=== PATIENT | male | born 1965 | race Two or more races ===

== ENCOUNTER 2019-02-14 08:24 | Emergency (ER) | payer MEDICAID ==
[~2019-02-14] VITALS: Ht 175.3 cm; Wt 90.7 kg
[2019-02-14 08:55] VITALS: BP 151/86
[2019-02-14] MEDS ORDERED: Ketorolac 30mg Inj IV ONE (09:00)
[2019-02-14] MEDS ORDERED: Morphine Sulfate 4mg/ml Inj (IV USE ONLY) IVP ONE (09:00)
[2019-02-14 09:06] LABS: APPEARANCE,URINE CLEAR; BILIRUBIN, URINE NEGATIVE (NEGATIVE); COLOR,URINE PALE YELLOW; GLUCOSE, URINE (UA) NEGATIVE (NEGATIVE); KETONES,URINE NEGATIVE (NEGATIVE); LEUKOCYTE ESTERASE ,URINE 1+ (NEGATIVE); NITRITE,URINE NEGATIVE (NEGATIVE); PH,URINE 5 (4.5-8.0); PROTEIN,URINE 2+ (NEGATIVE); UROBILINOGEN,URINE NORMAL MG/DL (0.0-1.0)
[2019-02-14 09:16] LABS: ANION GAP 14 mmol/L (5-15); BASOPHILS % (AUTO) 1.3 % (0.0-2.0); BLOOD UREA NITROGEN 31 mg/dL (7-18); CALCIUM 9.9 MG/DL (8.5-10.1); CARBON DIOXIDE 21 MMOL/L (21-32); CHLORIDE 103 MMOL/L (98-107); CREATININE 1.7 MG/DL (0.55-1.30); EOSINOPHILS % (AUTO) 1.1 % (0.0-3.0); HEMATOCRIT 40.3 % (42.0-52.0); HEMOGLOBIN 13.9 G/DL (14.2-18.0); LYMPHOCYTES % (AUTO) 29.1 % (20.0-45.0); MEAN CORPUSCULAR VOLUME 83 FL (80-99); MONOCYTES % (AUTO) 10.8 % (1.0-10.0); NEUTROPHILS % (AUTO) 57.8 % (45.0-75.0); PLATELET COUNT 186 K/UL (150-450); POTASSIUM 3.7 MMOL/L (3.5-5.1); RED BLOOD COUNT 4.86 M/UL (4.70-6.10); RED CELL DISTRIBUTION WIDTH 12.9 % (11.6-14.8); SODIUM 138 MMOL/L (136-145); WHITE BLOOD COUNT 6.5 K/UL (4.8-10.8)
[2019-02-14 09:21] LABS: ALANINE AMINOTRANSFERASE 36 U/L (12-78); ALBUMIN 4.1 G/DL (3.4-5.0); ALBUMIN/GLOBULIN RATIO 0.9 (1.0-2.7); ALKALINE PHOSPHATASE 68 U/L (46-116); ASPARTATE AMINO TRANSFERASE 20 U/L (15-37); BILIRUBIN,TOTAL 0.4 MG/DL (0.2-1.0)
--- NOTE | 2019-02-14 10:42 | Diagnostic Imaging Report ---
Indication: Abdominal pain Technique: Continuous helical transaxial imaging of the abdomen and pelvis was obtained from the lung bases to the pubic symphysis. No intravenous contrast was administered. Coronal 2-D reformats were also obtained. Automatic Exposure Control was utilized. Total Dose length Product (DLP): 1256.[address] Dose Index Volume (CTDIvol): 17.25,15.91 mGy Comparison: none Findings: There is minimal posterior basilar atelectasis with reticular densities and groundglass opacities. Tiny epiphrenic nodes are demonstrated nonspecific in nature. There is mild left hydroureteronephrosis secondary to a 2 mm left UVJ stone. Tiny nonobstructive stone demonstrated in the right kidney. The spleen is prominent in size. Appendix is normal. Bilateral inguinal hernias containing fat demonstrated. Bladder is unremarkable. There is no free fluid. Bowel gas pattern is nonobstructive. Vacuum phenomena and narrowing of the L3-4 and L4-5 intervertebral discs noted. IMPRESSION: 2 mm left UVJ calculus with minimal left hydroureteronephrosis. Tiny nonobstructive stone in the right kidney. Mild splenomegaly The CT scanner at [facility] is accredited by the [employer] and the scans are performed using dose optimization techniques as appropriate to a performed exam including Automatic Exposure control.
[2019-02-14] MEDS ORDERED: FLOMAX0.4 MG ORAL (11:00)
[2019-02-14] MEDS ORDERED: TYLENOL EXTRA500 MG ORAL (11:00)
[2019-02-14 11:09] VITALS: BP 132/78
--- NOTE | 2019-02-14 14:25 | Emergency Room Report ---
History of Present Illness General Chief Complaint: Abdominal Pain Source: Patient Present Illness HPI 53-year-old male presents ED for evaluation. Complaining of lower abdominal pain and hematuria. History of kidney stones. Started yesterday. Pain is throbbing, 8 out of 10, nonradiating. Denies nausea or vomiting. Denies fevers or chills. No other aggravating relieving factors. Denies any symptoms Allergies: Coded Allergies: No Known Allergies (Unverified , 02/14/19) Patient History Past Medical History: HTN, psych hx, other - kidney stones Past Surgical History: none Pertinent Family History: none Social History: Denies: smoking, alcohol use, drug use Immunizations: UTD Reviewed Nursing Documentation: PMH: Agreed; PSxH: Agreed Nursing Documentation-PMH Past Medical History: No History, Except For Hx Cardiac Problems: Yes - HIV Hx Hypertension: Yes History Of Psychiatric Problem: Yes - depression, anxiety Review of Systems All Other Systems: negative except mentioned in HPI Physical Exam Vital Signs Date Time Temp Pulse Resp B/P (MAP) Pulse Ox O2 Delivery O2 Flow Rate FiO2 02/14/19 08:28 97.5 75 18 151/86 (107) 96 Room Air Sp02 EP Interpretation: reviewed, normal General Appearance: no apparent distress, alert, GCS 15, non-toxic Head: normocephalic, atraumatic Eyes: bilateral eye normal inspection, bilateral eye PERRL ENT: hearing grossly normal, normal pharynx, no angioedema, normal voice Neck: full range of motion, supple/symm/no masses Respiratory: chest non-tender, lungs clear, normal breath sounds, speaking full sentences Cardiovascular #1: regular rate, rhythm, no edema Cardiovascular #2: 2+ carotid (R), 2+ carotid (L), 2+ radial (R), 2+ radial (L) , 2+ dorsalis pedis (R), 2+ dorsalis pedis (L) Gastrointestinal: normal bowel sounds, soft, non-distended, no guarding, no rebound, tenderness - suprapubic Rectal: deferred Genitourinary: normal inspection, no CVA tenderness Musculoskeletal: back normal, gait/station normal, normal range of motion, non- tender Neurologic: alert, oriented x3, responsive, motor strength/tone normal, sensory intact, speech normal Psychiatric: judgement/insight normal, memory normal, mood/affect normal, no suicidal/homicidal ideation Reflexes: 3+ bicep (R), 3+ bicep (L), 3+ tricep (R), 3+ tricep (L), 3+ knee (R) , 3+ knee (L) Skin: normal color, no rash, warm/dry, well hydrated Lymphatic: no adenopathy Medical Decision Making Diagnostic Impression: Primary Impression: Renal insufficiency Additional Impression: Kidney stone ER Course Hospital Course 53 yo M presents with pain and hematuria Differential diagnosis includes-appendicitis, cholecystitis, kidney stone, pyelonephritis Clinical course Patient placed on stretcher. After initial history and physical I ordered labs , IV fluids, pain medications and CT scan Labs - no leukocytosis, Cr 1.7, LFTs normal, UA - hematuria, no UTI CT scan shows 2mm stone in L UVJ with mild hydronephrosis Upon reassessment, patient states pain has improved. Discussed findings with patient. Safe for discharge or close outpatient follow-up. States he has a PMD and a urologist I feel this is a highly complex case requiring extensive working including EKG/ Rhythm strip, Xray/CT/US, Blood/urine lab work, repeat exams while in ED, and administration of strong opiates/narcotics for pain control, admission to hospital or close patient follow up. Diagnosis - renal insufficiency, kidney stone Stable and discharged to home with Rx tylenol, flomax. Followup with PMD. Return to ED if symptoms recur or worsen Labs Test 02/14/19 08:48 02/14/19 08:55 Urine Color Pale yellow Urine Appearance Clear Urine pH 5 (4.5-8.0) Urine Specific [place] 1.015 (1.005-1.035) Urine Protein 2+ (NEGATIVE) Urine Glucose (UA) Negative (NEGATIVE) Urine Ketones Negative (NEGATIVE) Urine Blood 5+ (NEGATIVE) Urine Nitrite Negative (NEGATIVE) Urine Bilirubin Negative (NEGATIVE) Urine Urobilinogen Normal MG/DL (0.0-1.0) Urine Leukocyte Esterase 1+ (NEGATIVE) Urine RBC 15-20 /HPF (0 - 0) Urine WBC 0-2 /HPF (0 - 0) Urine Squamous Epithelial Cells Occasional /LPF Urine Bacteria Occasional /HPF (NONE) White Blood Count 6.5 K/UL (4.8-10.8) Red Blood Count 4.86 M/UL (4.70-6.10) Hemoglobin 13.9 G/DL (14.2-18.0) Hematocrit 40.3 % (42.0-52.0) Mean Corpuscular Volume 83 FL (80-99) Mean Corpuscular Hemoglobin 28.7 PG (27.0-31.0) Mean Corpuscular Hemoglobin Concent 34.6 G/DL (32.0-36.0) Red Cell Distribution Width 12.9 % (11.6-14.8) Platelet Count 186 K/UL (150-450) Mean Platelet Volume 7.0 FL (6.5-10.1) Neutrophils (%) (Auto) 57.8 % (45.0-75.0) Lymphocytes (%) (Auto) 29.1 % (20.0-45.0) Monocytes (%) (Auto) 10.8 % (1.0-10.0) Eosinophils (%) (Auto) 1.1 % (0.0-3.0) Basophils (%) (Auto) 1.3 % (0.0-2.0) Sodium Level 138 MMOL/L (136-145) Potassium Level 3.7 MMOL/L (3.5-5.1) Chloride Level 103 MMOL/L (98-107) Carbon Dioxide Level 21 MMOL/L (21-32) Anion Gap 14 mmol/L (5-15) Blood Urea Nitrogen 31 mg/dL (7-18) Creatinine 1.7 MG/DL (0.55-1.30) Estimat Glomerular Filtration Rate 42.4 mL/min (>60) Glucose Level 106 MG/DL (74-106) Calcium Level 9.9 MG/DL (8.5-10.1) Total Bilirubin 0.4 MG/DL (0.2-1.0) Aspartate Amino Transf (AST/SGOT) 20 U/L (15-37) Alanine Aminotransferase (ALT/SGPT) 36 U/L (12-78) Alkaline Phosphatase 68 U/L (46-116) Total Protein 8.8 G/DL (6.4-8.2) Albumin 4.1 G/DL (3.4-5.0) Globulin 4.7 g/dL Albumin/Globulin Ratio 0.9 (1.0-2.7) Lipase 152 U/L (73-393) CT/MRI/US Diagnostic Results CT/MRI/US Diagnostic Results : Imaging Test Ordered: CT A/P Impression Findings: There is minimal posterior basilar atelectasis with reticular densities and groundglass opacities. Tiny epiphrenic nodes are demonstrated nonspecific in nature. There is mild left hydroureteronephrosis secondary to a 2 mm left UVJ stone. Tiny nonobstructive stone demonstrated in the right kidney. The spleen is prominent in size. Appendix is normal. Bilateral inguinal hernias containing fat demonstrated. Bladder is unremarkable. There is no free fluid. Bowel gas pattern is nonobstructive. Vacuum phenomena and narrowing of the L3-4 and L4-5 intervertebral discs noted. Last Vital Signs Date Time Temp Pulse Resp B/P (MAP) Pulse Ox O2 Delivery O2 Flow Rate FiO2 02/14/19 11:09 97.5 78 18 132/78 96 Room Air Status: improved Disposition: HOME, SELF-CARE Condition: Stable Scripts Tamsulosin HCl (Flomax) 0.4 Mg Cap.er.24h 0.4 MG ORAL DAILY, #10 CAP Prov: Dyllan Chase MD 02/14/19 Acetaminophen* (TYLENOL EXTRA STRENGTH*) 500 Mg Tablet 500 MG ORAL Q8H PRN for Prn Headache/Temp > 101, #30 TAB 0 Refills Prov: Dyllan Chase MD 02/14/19 Patient Instructions: Kidney Stones, [id number] Additional Instructions: followup with your PMD for urology referral Dyllan Chase MD February 14, 2019 14:25
== END 2019-02-14 11:09 | disposition home or self-care (01) ==
LOC: EMR 09:07
DX: N28.9 Disorder of kidney and ureter, unspecified (principal); N13.2 Hydronephrosis with renal and ureteral calculous obstruction; R16.1 Splenomegaly, not elsewhere classified; I10 Essential (primary) hypertension; Z87.442 Personal history of urinary calculi; F41.9 Anxiety disorder, unspecified; F32.9 Major depressive disorder, single episode, unspecified
CPT/HCPCS: 36415; 74176; 80053; 81003; 83690; 85025; 96361; 96374; 96375; 99284; J1885; J2405

== ENCOUNTER 2019-03-28 19:28 | Inpatient (IN) | payer MEDICAID ==
[~2019-03-28] VITALS: Ht 177.8 cm; Wt 90.7 kg
[~2019-03-28 19:28] MED LIST: FLOMAX0.4 MG ORAL; TYLENOL EXTRA500 MG ORAL
[2019-03-28 19:37] VITALS: BP 137/91
--- NOTE | 2019-03-28 19:37 | NUR ---
ED Nurse Note: Patient walked into ED c/o left lower abdominal pain that he states has been an ongoing issue for 1 day now. patient states that he does have a history of kidney stones in the past. patient was unable to give urine. reports of no emesis or diarrhea. patient is alert and oriented x4, ambulatory with a steady gait, VSS
--- NOTE | 2019-03-28 19:56 | Emergency Room Report ---
History of Present Illness General Chief Complaint: Abdominal Pain Source: Patient ([place]) Present Illness HPI 53-year-old male presents to the emergency department complaining of 9 out of 10 severity left flank pain with radiation down towards the left groin since noon today. Patient reports initially symptoms were intermittent however they have become more constant and his pain is not relieved with oral over-the- counter medication such as Motrin. Patient reports history of renal calculi. Patient denies hematuria, urinary frequency or urgency, dysuria or penile discharge. Patient reports urine is slightly concentrated. He denies fevers, chills, nausea, vomiting, constipation or diarrhea. Reports that his symptoms are very similar in nature to symptoms that he has experienced in the past when he had renal calculi. ([place]) Allergies: Coded Allergies: No Known Allergies (Unverified , 02/14/19) Patient History Past Medical History: see triage record, HIV, other - renal calculi Past Surgical History: none Pertinent Family History: none Reviewed Nursing Documentation: PMH: Agreed; PSxH: Agreed ([place]) Reviewed Nursing Documentation: PMH: Agreed; PSxH: Agreed (Thomas Blandon MD) Nursing Documentation-PMH Past Medical History: No History, Except For Hx Hypertension: Yes History Of Psychiatric Problem: Yes - DEPRESSION ([place]) Review of Systems All Other Systems: negative except mentioned in HPI ([place]) Physical Exam Vital Signs Date Time Temp Pulse Resp B/P (MAP) Pulse Ox O2 Delivery O2 Flow Rate FiO2 03/28/19 19:36 98.1 66 15 137/91 (106) 96 Room Air Sp02 EP Interpretation: reviewed, normal General Appearance: alert, GCS 15, non-toxic, moderate distress Head: normocephalic, atraumatic Eyes: bilateral eye normal inspection, bilateral eye PERRL ENT: hearing grossly normal, normal voice Neck: full range of motion Respiratory: lungs clear, normal breath sounds, speaking full sentences Cardiovascular #1: regular rate, rhythm Gastrointestinal: normal bowel sounds, non tender, soft, non-distended, no guarding Genitourinary: normal inspection, no CVA tenderness Musculoskeletal: back normal, gait/station normal, normal range of motion, non- tender Neurologic: alert, oriented x3, responsive, motor strength/tone normal, sensory intact, speech normal, grossly normal Psychiatric: judgement/insight normal ([place]) Medical Decision Making PA Attestation Dr. Blandon is my supervising Physician whom patient management has been discussed with. ([place]) Diagnostic Impression: Primary Impression: Renal insufficiency Additional Impressions: Hydronephrosis Left ureteral stone HIV disease ER Course 53-year-old male presents to the emergency department complaining of 9 out of 10 severity left flank pain with radiation down towards the left groin since noon today. Patient reports initially symptoms were intermittent however they have become more constant and his pain is not relieved with oral over-the- counter medication such as Motrin. Patient reports history of renal calculi. Patient denies hematuria, urinary frequency or urgency, dysuria or penile discharge. Patient reports urine is slightly concentrated. He denies fevers, chills, nausea, vomiting, constipation or diarrhea. Reports that his symptoms are very similar in nature to symptoms that he has experienced in the past when he had renal calculi. Ddx considered but are not limited to Diverticulitis, acute appy, diarrhea,UC, PUD, GE, pancreatitis, gallstone, kidney stone, pyelonephritis, UTI, obstruction. Vital signs: are WNL, pt. is afebrile H&PE are most consistent with possible left renal calculi ORDERS: -CBC, BMP: - UA: pending at time - CT abdomen and pelvis no contrast: ED INTERVENTIONS: -- 1000NS --4mg IV Morphine for pain Pt signed out to Dr. Blandon ([place]) ER Course Patient presented for increased left flank pain. Differential diagnosis include was not limited to renal stone, inguinal hernia, bowel obstruction among others. Because of complexity of patient's case laboratory testing and imaging studies were ordered. Patient was noted to have increased creatinine based compared to previous laboratory testing from 2 months ago. Patient was noted to have some improvement after medications.Laboratory testing showed normal white blood count. Ultrasound showed left-sided mild to moderate hydronephrosis patient previously had CT imaging which showed multiple stones.Patient will be hospitalized for further evaluation and pain control. Labs Test 03/28/19 19:57 White Blood Count 5.4 K/UL (4.8-10.8) Red Blood Count 4.77 M/UL (4.70-6.10) Hemoglobin 13.8 G/DL (14.2-18.0) Hematocrit 41.1 % (42.0-52.0) Mean Corpuscular Volume 86 FL (80-99) Mean Corpuscular Hemoglobin 29.0 PG (27.0-31.0) Mean Corpuscular Hemoglobin Concent 33.6 G/DL (32.0-36.0) Red Cell Distribution Width 12.4 % (11.6-14.8) Platelet Count 155 K/UL (150-450) Mean Platelet Volume 8.5 FL (6.5-10.1) Neutrophils (%) (Auto) 64.3 % (45.0-75.0) Lymphocytes (%) (Auto) 23.9 % (20.0-45.0) Monocytes (%) (Auto) 8.3 % (1.0-10.0) Eosinophils (%) (Auto) 2.3 % (0.0-3.0) Basophils (%) (Auto) 1.3 % (0.0-2.0) Sodium Level 137 MMOL/L (136-145) Potassium Level 3.5 MMOL/L (3.5-5.1) Chloride Level 103 MMOL/L (98-107) Carbon Dioxide Level 24 MMOL/L (21-32) Anion Gap 10 mmol/L (5-15) Blood Urea Nitrogen 26 mg/dL (7-18) Creatinine 2.1 MG/DL (0.55-1.30) Estimat Glomerular Filtration Rate 33.2 mL/min (>60) Glucose Level 98 MG/DL (74-106) Calcium Level 9.6 MG/DL (8.5-10.1) (Thomas Blandon MD) Last Vital Signs Date Time Temp Pulse Resp B/P (MAP) Pulse Ox O2 Delivery O2 Flow Rate FiO2 03/28/19 19:36 98.1 66 15 137/91 (106) 96 Room Air ([place]) Status: unchanged (Thomas Blandon MD) Disposition: ADMITTED INPATIENT Condition: Stable [place] Mar 28, 2019 19:56 Thomas Blandon MD Mar 28, 2019 20:39
[2019-03-28] MEDS ORDERED: Morphine Sulfate 4mg/ml Inj (IV USE ONLY) IVP ONE ×2 (20:00→21:15)
[2019-03-28] MEDS ORDERED: Ketorolac 30mg Inj IV ONE (20:00)
[2019-03-28 20:27] LABS: ANION GAP 10 mmol/L (5-15); BLOOD UREA NITROGEN 26 mg/dL (7-18); CALCIUM 9.6 MG/DL (8.5-10.1); CARBON DIOXIDE 24 MMOL/L (21-32); CHLORIDE 103 MMOL/L (98-107); CREATININE 2.1 MG/DL (0.55-1.30); POTASSIUM 3.5 MMOL/L (3.5-5.1); SODIUM 137 MMOL/L (136-145)
[2019-03-28 20:29] LABS: BASOPHILS % (AUTO) 1.3 % (0.0-2.0); EOSINOPHILS % (AUTO) 2.3 % (0.0-3.0); HEMATOCRIT 41.1 % (42.0-52.0); HEMOGLOBIN 13.8 G/DL (14.2-18.0); LYMPHOCYTES % (AUTO) 23.9 % (20.0-45.0); MEAN CORPUSCULAR VOLUME 86 FL (80-99); MONOCYTES % (AUTO) 8.3 % (1.0-10.0); NEUTROPHILS % (AUTO) 64.3 % (45.0-75.0); PLATELET COUNT 155 K/UL (150-450); RED BLOOD COUNT 4.77 M/UL (4.70-6.10); RED CELL DISTRIBUTION WIDTH 12.4 % (11.6-14.8); WHITE BLOOD COUNT 5.4 K/UL (4.8-10.8)
[2019-03-28] MEDS ORDERED: GABAPENTIN600 MG ORAL (21:15)
[2019-03-28] MEDS ORDERED: WELLBUTRIN SR100 MG ORAL (21:15)
[2019-03-28] MEDS ORDERED: WELLBUTRIN XL150 MG ORAL (21:15)
[2019-03-28] MEDS ORDERED: LISINOPRIL5 MG ORAL (21:15)
[2019-03-28] MEDS ORDERED: BUPROPION XL300 MG ORAL (21:15)
[2019-03-28] MEDS ORDERED: QUETIAPINE FUMA25 MG ORAL (21:15)
--- NOTE | 2019-03-28 21:30 | NUR ---
SPOKE WITH BETHEL REGARDING CLINICAL INFORMATION
[2019-03-28 21:35] LABS: APPEARANCE,URINE SLIGHTLY CLOUDY; BILIRUBIN, URINE NEGATIVE (NEGATIVE); COLOR,URINE PALE YELLOW; GLUCOSE, URINE (UA) NEGATIVE (NEGATIVE); KETONES,URINE NEGATIVE (NEGATIVE); LEUKOCYTE ESTERASE ,URINE NEGATIVE (NEGATIVE); NITRITE,URINE NEGATIVE (NEGATIVE); PH,URINE 5 (4.5-8.0); PROTEIN,URINE 2+ (NEGATIVE); UROBILINOGEN,URINE NORMAL MG/DL (0.0-1.0)
[2019-03-28 21:54] VITALS: BP 137/91
[2019-03-28] MEDS ORDERED: Tamsulosin 0.4mg cap ORAL ONE (22:15)
--- NOTE | 2019-03-28 22:21 | NUR ---
ED Nurse Note: patient in bed sleeping. complains of 4/10 pain
--- NOTE | 2019-03-28 22:50 | NUR ---
ED Nurse Note: Spoke with Daughter, Georgina, . informed patient's daughter regarding condition
[2019-03-29] VITALS (12 sets, daily range): BP systolic 114–147; BP diastolic 63–87
[2019-03-29] MEDS ORDERED: HYDROmorphone 1mg/ml Carpuject IVP ONE
--- NOTE | 2019-03-29 | NUR ---
ED Nurse Note: patietn complains of persistent pain, Dr. Sanchez notified and aware.
--- NOTE | 2019-03-29 00:19 | NUR ---
NURSE NOTES: Received ER telephone report from JULIO Parr. Awaiting patient's arrival.
--- NOTE | 2019-03-29 00:25 | NUR ---
TRANSFER TO FLOOR: Patient transferred to [facility] as ordered, per . Report given to Eli Yen
--- NOTE | 2019-03-29 00:30 | NUR ---
NURSE NOTES: Received patient to floor. Patient A&Ox4. On room air, no signs of distress or labored breathing. IV intact, patent, and saline locked. Belongings checked and validated. Bed in lowest position with call light in reach. Will implement MD orders and continue to monitor.
[2019-03-29] MEDS ORDERED: Acetaminophen 500mg (ES) tab ORAL PRN ×2 (01:45→03:00)
[2019-03-29] MEDS ORDERED: LORazepam Inj 2mg/ml 1ml IVP PRN (01:45)
[2019-03-29] MEDS ORDERED: Ketorolac 30mg Inj IV PRN ×3 (01:45→15:30)
[2019-03-29] MEDS ORDERED: Morphine Sulfate 2mg/ml Inj(IV/IM USE ONLY) IVP PRN (01:45)
[2019-03-29] MEDS ORDERED: ZOLOFT100 MG ORAL (02:04)
[2019-03-29] MEDS ORDERED: TRIUMEQ 600-501 EACH PO (02:04)
[2019-03-29] MEDS ORDERED: D5 1/2NS 1,000 ML IV SCH ×2 (02:45→08:30)
[2019-03-29] MEDS ORDERED: cefTRIAXone 2 GM in NS 55 ML IVPB ONE (03:00)
[2019-03-29] MEDS ORDERED: Morphine Sulfate 4mg/ml Inj (IV USE ONLY) IVP PRN (03:00)
--- NOTE | 2019-03-29 07:02 | NUR ---
CASE MANAGEMENT: INITIAL REVIEW 53 YO M PRESENTED TO ED FROM HOME CC: ABD PAIN PMHx: HIV. RENAL CALCULI. SI:KIDNEY STONE. RAHEL. T 98.1 HR 66 RR 15 B/P 137/91 SATS 96% ON RA BUN 26 CR 2.1 IS: NS BOLUS X1 TORADOL IV X1 MORPHINE IV X1 PATIENT ADMITTED TO MED/SURG 03/28/2019 @ 2155 DCP: PATIENT TO BE DISCHARGED TO HOME ONCE MEDICALLY CLEARED. 03/29/2019 SI:KIDNEY STONE. RAHEL. T 98.6 HR 69 RR 20 B/P 118/68 SATS 97% ON RA NO LABS TODAY IS: IVF @ 50 mL/HR WELLBUTRIN PO QD LISINOPRIL PO QD SEROQUEL PO QD PROTONIX PO QD FLOMAX PO QHS MED/SURG STATUS DCP: PATIENT TO BE DISCHARGED TO HOME ONCE MEDICALLY CLEARED. Addendum: 03/29/19 at 0715 by Keyla Thorpe CM INTERQUAL MET
--- NOTE | 2019-03-29 07:30 | NUR ---
HAND-OFF: Report given to JULIO Hankins.
[2019-03-29 07:44] LABS: BASOPHILS % (AUTO) 1.1 % (0.0-2.0); EOSINOPHILS % (AUTO) 0.9 % (0.0-3.0); HEMOGLOBIN 12.9 G/DL (14.2-18.0); LYMPHOCYTES % (AUTO) 20.8 % (20.0-45.0); MEAN CORPUSCULAR VOLUME 88 FL (80-99); MONOCYTES % (AUTO) 8.9 % (1.0-10.0); NEUTROPHILS % (AUTO) 68.3 % (45.0-75.0); PLATELET COUNT 128 K/UL (150-450); RED BLOOD COUNT 4.54 M/UL (4.70-6.10); WHITE BLOOD COUNT 4.8 K/UL (4.8-10.8)
[2019-03-29] MEDS ORDERED: Ketorolac 30mg Inj IV SCH (08:00)
--- NOTE | 2019-03-29 08:02 | NUR ---
NURSE NOTES: RN received pt in stable condition. No acute distress or SOB. Bed in low, locked position. Call light within reach. Daughter to bring in pt's home meds today. Pt diet changed to NPO. Will continue plan of care.
[2019-03-29 08:04] LABS: ALANINE AMINOTRANSFERASE 37 U/L (12-78); ALBUMIN 3.1 G/DL (3.4-5.0); ALBUMIN/GLOBULIN RATIO 0.8 (1.0-2.7); ALKALINE PHOSPHATASE 60 U/L (46-116); ANION GAP 11 mmol/L (5-15); ASPARTATE AMINO TRANSFERASE 23 U/L (15-37); BILIRUBIN,TOTAL 0.2 MG/DL (0.2-1.0); BLOOD UREA NITROGEN 24 mg/dL (7-18); CALCIUM 8.5 MG/DL (8.5-10.1); CARBON DIOXIDE 22 MMOL/L (21-32); CHLORIDE 110 MMOL/L (98-107); CHOLESTEROL 178 MG/DL (< 200); CREATININE 2.4 MG/DL (0.55-1.30); HDL CHOLESTEROL 25 MG/DL (40-60); POTASSIUM 3.5 MMOL/L (3.5-5.1); SODIUM 143 MMOL/L (136-145); TRIGLYCERIDES 323 MG/DL (30-150)
[2019-03-29] MEDS: BuPROPion SR 100mg tab ORAL SCH (08:10)
[2019-03-29] MEDS: Sertraline 50mg tab ORAL SCH (08:15)
[2019-03-29] MEDS ORDERED: Lisinopril 2.5mg tab ORAL SCH (09:00)
--- NOTE | 2019-03-29 09:00 | Consultation ---
DATE OF CONSULTATION: 03/29/2019 UROLOGY CONSULTATION CONSULTING PHYSICIAN: Gonzales Calix M.D. ATTENDING/REFERRING PHYSICIAN: Violeta Betts M.D. CHIEF COMPLAINT/HISTORY OF PRESENT ILLNESS: I was asked by Dr. Betts to evaluate this 53-year-old gentleman regarding a history of renal colic in the setting of previous nephrolithiasis. Briefly, the patient has a history of nephrolithiasis and has passed stones in the past. He presented to the ER in January with left-sided abdominal flank pain. At that time, CT scan that revealed a 2 mm stone in the left UVJ. He was improved with pain medication and discharged home. He now returns to the hospital with recurrent left flank pain approximately 6 weeks later. Given the above, I was asked to evaluate the patient. PAST MEDICAL HISTORY: 1. Nephrolithiasis. 2. HIV. 3. Hypertension. 4. Depression. PAST SURGICAL HISTORY: None. MEDICATIONS: Please see chart for current medications administration details. ALLERGIES: No known drug allergies. SOCIAL HISTORY: Unremarkable for tobacco, alcohol, or drug use. FAMILY HISTORY: Noncontributory. REVIEW OF SYSTEMS: A 14-system review of systems essentially unremarkable outside what is described above. PHYSICAL EXAMINATION: GENERAL: The patient is a middle-aged gentleman. Awake, alert, oriented x4. Pleasant, no obvious distress. HEENT: NC/AT. EOMI. Oropharynx clear. NECK: Supple. Full range of motion. CHEST: Within normal limits. ABDOMEN: Soft, nontender, nondistended. Somewhat obese. EXTREMITIES: Warm, well perfused. No cyanosis, clubbing, or edema. BACK: No CVA tenderness to percussion at this time. NEUROLOGIC: Nonfocal. LABORATORY DATA: White blood cell count 5.4, hematocrit 41.1, platelets 155. Sodium 137, potassium 3.5, chloride 103, bicarbonate 24, BUN 26, creatinine 2.1, glucose 98, calcium 9.6. Urinalysis specific gravity 1.020, pH 5.0. Dip test notable for 2+ protein, 5+ occult blood. Microanalysis with too numerous to count red blood cells per high-power field. DIAGNOSTIC IMAGING: CT scan of the abdomen and pelvis was done, but the read is still pending. ASSESSMENT AND PLAN: In summary, the patient is a 53-year-old gentleman with a history of nephrolithiasis who presents with a history of left-sided abdominal flank pain associated with the same. He was admitted to the hospital for the same. Physical exam is unremarkable for abdominal or CVA tenderness at this time. Laboratory data is notable for some renal insufficiency, which appears to be chronic. CT scan has been done, but read is pending. I discussed these findings today with the patient at bedside. His previous stone was very small. We will obtain a CT scan report and see whether or not this is the same stone or what else is present in his ureter. Based on the findings, we will institute plan of care for the patient. If the stone is extremely small or the same stone as before, conservative management may be appropriate. If there is any need for surgical intervention due to discomfort, we will consider that at that time. Thank you for allowing to participate in the care of this nice gentleman. Please do not hesitate to contact me for any questions that you may further have regarding his care. I will see him with you as needed. Gonzales Calix M.D. DR: ANNABELLE JOB#: [id number] CC:
[2019-03-29] MEDS: Morphine Sulfate 4mg/ml Inj (IV USE ONLY) IVP PRN ×3 (09:30→20:58)
--- NOTE | 2019-03-29 11:12 | Diagnostic Imaging Report ---
Indication: Abdominal pain Technique: Continuous helical transaxial imaging of the abdomen and pelvis was obtained from the lung bases to the pubic symphysis. No intravenous contrast was administered. Coronal 2-D reformats were also obtained. Automatic Exposure Control was utilized. Total Dose length Product (DLP): 1061.[address] Dose Index Volume (CTDIvol): 18.4 mGy Comparison: 02/14/2019 Findings: Linear densities at the lung bases likely atelectasis. There is a 4 mm stone at the left UVJ associated with mild to moderate left hydroureteronephrosis and perinephric/periureteral stranding. There is also a tiny punctate nonobstructive stone in the left kidney lower pole. The bladder is unremarkable. Note that the stone is on the bladder side of the UVJ. Appendix is normal. Bowel gas pattern is nonobstructive. Tiny nonobstructive stone also noted in the right kidney upper pole. Gallbladder is unremarkable. IMPRESSION: 4 mm stone on the bladder side of the left UVJ associated with moderate hydroureteronephrosis. Bilateral nonobstructive renal stones also noted. Other incidental findings as above. [facility] has communicated the preliminary results to the Emergency Department. Their findings are largely concordant with this report. The CT scanner at [facility] is accredited by the [employer] and the scans are performed using dose optimization techniques as appropriate to a performed exam including Automatic Exposure control.
--- NOTE | 2019-03-29 11:55 | Diagnostic Imaging Report ---
Indication:Elevated Bun and Creatinine. Technique: Grayscale and duplex Doppler imaging of the kidneys performed. Comparison: None Findings: There is left hydronephrosis demonstrated. Small echogenic foci noted within both kidneys suspicious for tiny nonobstructive stone. Right kidney is 11.5 cm in length. The left kidney is 12 cm in length. IVC is patent. The urinary bladder is unremarkable. IMPRESSION: Moderate left hydroureteronephrosis. Bilateral nonobstructive renal stones. Please refer to the CT report from the same day
--- NOTE | 2019-03-29 13:02 | Consultation ---
Consult Note Consult Note asked to eval for renal failure 53-year-old male presents to the emergency department complaining of 9 out of 10 severity left flank pain with radiation down towards the left groin since noon today. Patient reports initially symptoms were intermittent however they have become more constant and his pain is not relieved with oral over-the- counter medication such as Motrin. Patient reports history of renal calculi. Patient denies hematuria, urinary frequency or urgency, dysuria or penile discharge. Patient reports urine is slightly concentrated. He denies fevers, chills, nausea, vomiting, constipation or diarrhea. Reports that his symptoms are very similar in nature to symptoms that he has experienced in the past when he had renal calculi. No Known Allergies (Unverified , 02/14/19) Past Medical History: HIV, other - renal calculi Past Medical History: No History, Except For Hx Hypertension: Yes History Of Psychiatric Problem: Yes - DEPRESSION Patient also in drug rehab program- h/o PCP use interviewed examined data reviewed Assessment/Plan renal failure- Etiology? acute on chronic HTN Kidney stone, Left hydro HIV Depression Drug abuse Obese Uro intervention BP control avoid Nephrotoxics monitor renal parameters syop Toradol and Zestril due to elevated Cr CT IMPRESSION: 4 mm stone on the bladder side of the left UVJ associated with moderate hydroureteronephrosis. Bilateral nonobstructive renal stones also noted. River Smith MD Mar 29, 2019 13:02
[2019-03-29] MEDS: D5 1/2NS 1,000 ML IV SCH ×2 (13:30→20:54)
--- NOTE | 2019-03-29 14:00 | History & Physical ---
History and Physical History & Physicial seen and examined. Full Dictation completed Violeta Betts MD Mar 29, 2019 14:00
--- NOTE | 2019-03-29 14:03 | General Progress Note ---
Assessment/Plan Status: stable Assessment/Plan: Full Dictation in progress 1- Acute Renal Colic 2- ARF 3- Obstructive uropathy- Lt 4- HIV 5- Addiction , on rehab Plan; ID,Nephro and Urology consulted Subjective Allergies: Coded Allergies: No Known Allergies (Unverified , 02/14/19) Objective Last 24 Hour Vital Signs Date Time Temp Pulse Resp B/P (MAP) Pulse Ox O2 Delivery O2 Flow Rate FiO2 03/29/19 12:00 98.0 69 20 122/72 (89) 97 03/29/19 10:00 98.6 03/29/19 09:00 Room Air 03/29/19 08:48 98.6 03/29/19 08:12 118/68 03/29/19 08:00 98.0 67 20 127/74 (91) 97 03/29/19 04:00 98.6 69 20 118/68 (85) 97 03/29/19 01:35 Room Air 03/29/19 00:30 97.7 70 20 147/70 (95) 97 03/29/19 00:25 98.1 66 15 124/79 96 Room Air 03/29/19 00:13 98.1 66 15 124/79 96 Room Air 03/28/19 21:54 98.1 72 15 137/91 96 Room Air 03/28/19 21:44 98.1 03/28/19 21:44 98.1 03/28/19 20:34 98.1 03/28/19 19:37 98.1 65 15 137/91 96 Room Air 03/28/19 19:37 66 15 Room Air 03/28/19 19:36 98.1 66 15 137/91 (106) 96 Room Air Intake and Output 03/28/19 03/29/19 19:00 07:00 Intake Total 1000 ml Balance 1000 ml Intake IV Total 1000 ml # Voids 4 Laboratory Tests 03/28/19 19:57: White Blood Count 5.4, Red Blood Count 4.77, Hemoglobin 13.8L, Hematocrit 41.1L , Mean Corpuscular Volume 86, Mean Corpuscular Hemoglobin 29.0, Mean Corpuscular Hemoglobin Concent 33.6, Red Cell Distribution Width 12.4, Platelet Count 155, Mean Platelet Volume 8.5, Neutrophils (%) (Auto) 64.3, Lymphocytes (% ) (Auto) 23.9, Monocytes (%) (Auto) 8.3, Eosinophils (%) (Auto) 2.3, Basophils ( %) (Auto) 1.3, Sodium Level 137, Potassium Level 3.5, Chloride Level 103, Carbon Dioxide Level 24, Anion Gap 10, Blood Urea Nitrogen 26H, Creatinine 2.1H , Estimat Glomerular Filtration Rate 33.2, Glucose Level 98, Calcium Level 9.6 03/28/19 21:25: Urine Color Pale yellow, Urine Appearance Slightly cloudy, Urine pH 5, Urine Specific [place] 1.020, Urine Protein 2+H, Urine Glucose (UA) Negative, Urine Ketones Negative, Urine Blood 5+H, Urine Nitrite Negative, Urine Bilirubin Negative, Urine Urobilinogen Normal, Urine Leukocyte Esterase Negative, Urine RBC TntcH, Urine WBC 0-2, Urine Squamous Epithelial Cells None, Urine Amorphous Sediment ModerateH, Urine Bacteria Few 03/29/19 06:16: White Blood Count 4.8, Red Blood Count 4.54L, Hemoglobin 12.9L, Hematocrit 40.0L , Mean Corpuscular Volume 88, Mean Corpuscular Hemoglobin 28.4, Mean Corpuscular Hemoglobin Concent 32.2, Red Cell Distribution Width 13.0, Platelet Count 128L, Mean Platelet Volume 9.0, Neutrophils (%) (Auto) 68.3, Lymphocytes ( %) (Auto) 20.8, Monocytes (%) (Auto) 8.9, Eosinophils (%) (Auto) 0.9, Basophils (%) (Auto) 1.1, Sodium Level 143, Potassium Level 3.5, Chloride Level 110H, Carbon Dioxide Level 22, Anion Gap 11, Blood Urea Nitrogen 24H, Creatinine 2.4H , Estimat Glomerular Filtration Rate 28.5, Glucose Level 116H, Calcium Level 8.5 , Hemoglobin A1c 5.7, Total Bilirubin 0.2, Aspartate Amino Transf (AST/SGOT) 23 , Alanine Aminotransferase (ALT/SGPT) 37, Alkaline Phosphatase 60, Total Protein 7.0, Albumin 3.1L, Globulin 3.9, Albumin/Globulin Ratio 0.8L, Triglycerides Level 323H, Cholesterol Level 178, LDL Cholesterol 100, HDL Cholesterol 25L, Cholesterol/HDL Ratio 7.1H, Thyroid Stimulating Hormone (TSH) 6.239H Height (Feet): 5 Height (Inches): 10.00 Weight (Pounds): 200 Violeta Betts MD Mar 29, 2019 14:03
--- NOTE | 2019-03-29 14:30 | Infectious Diseases Prog Note ---
Assessment/Plan Problems: (1) HIV disease Assessment & Plan: continue trimeque , will obtain viral load and CD4 counts , follow up with HIV provider (2) Left ureteral stone Assessment & Plan: with mod hydronephrosis , start ceftriaxone empirically to cover for possible pyelonephritis , send urine culture, urology is following (3) Renal insufficiency Assessment & Plan: chronic, continue hydration, may need stone removal to prevent worsening hydronephrosis , and to improve renal function Subjective Allergies: Coded Allergies: No Known Allergies (Unverified , 02/14/19) Objective Vital Signs Last 24 Hour Vital Signs Date Time Temp Pulse Resp B/P (MAP) Pulse Ox O2 Delivery O2 Flow Rate FiO2 03/29/19 12:00 98.0 69 20 122/72 (89) 97 03/29/19 10:00 98.6 03/29/19 09:00 Room Air 03/29/19 08:48 98.6 03/29/19 08:12 118/68 03/29/19 08:00 98.0 67 20 127/74 (91) 97 03/29/19 04:00 98.6 69 20 118/68 (85) 97 03/29/19 01:35 Room Air 03/29/19 00:30 97.7 70 20 147/70 (95) 97 03/29/19 00:25 98.1 66 15 124/79 96 Room Air 03/29/19 00:13 98.1 66 15 124/79 96 Room Air 03/28/19 21:54 98.1 72 15 137/91 96 Room Air 03/28/19 21:44 98.1 03/28/19 21:44 98.1 03/28/19 20:34 98.1 03/28/19 19:37 98.1 65 15 137/91 96 Room Air 03/28/19 19:37 66 15 Room Air 03/28/19 19:36 98.1 66 15 137/91 (106) 96 Room Air Height (Feet): 5 Height (Inches): 10.00 Weight (Pounds): 200 Laboratory Tests Test 03/28/19 19:57 03/28/19 21:25 03/29/19 06:16 White Blood Count 5.4 K/UL (4.8-10.8) 4.8 K/UL (4.8-10.8) Red Blood Count 4.77 M/UL (4.70-6.10) 4.54 M/UL (4.70-6.10) L Hemoglobin 13.8 G/DL (14.2-18.0) L 12.9 G/DL (14.2-18.0) L Hematocrit 41.1 % (42.0-52.0) L 40.0 % (42.0-52.0) L Mean Corpuscular Volume 86 FL (80-99) 88 FL (80-99) Mean Corpuscular Hemoglobin 29.0 PG (27.0-31.0) 28.4 PG (27.0-31.0) Mean Corpuscular Hemoglobin Concent 33.6 G/DL (32.0-36.0) 32.2 G/DL (32.0-36.0) Red Cell Distribution Width 12.4 % (11.6-14.8) 13.0 % (11.6-14.8) Platelet Count 155 K/UL (150-450) 128 K/UL (150-450) L Mean Platelet Volume 8.5 FL (6.5-10.1) 9.0 FL (6.5-10.1) Neutrophils (%) (Auto) 64.3 % (45.0-75.0) 68.3 % (45.0-75.0) Lymphocytes (%) (Auto) 23.9 % (20.0-45.0) 20.8 % (20.0-45.0) Monocytes (%) (Auto) 8.3 % (1.0-10.0) 8.9 % (1.0-10.0) Eosinophils (%) (Auto) 2.3 % (0.0-3.0) 0.9 % (0.0-3.0) Basophils (%) (Auto) 1.3 % (0.0-2.0) 1.1 % (0.0-2.0) Sodium Level 137 MMOL/L (136-145) 143 MMOL/L (136-145) Potassium Level 3.5 MMOL/L (3.5-5.1) 3.5 MMOL/L (3.5-5.1) Chloride Level 103 MMOL/L (98-107) 110 MMOL/L (98-107) H Carbon Dioxide Level 24 MMOL/L (21-32) 22 MMOL/L (21-32) Anion Gap 10 mmol/L (5-15) 11 mmol/L (5-15) Blood Urea Nitrogen 26 mg/dL (7-18) H 24 mg/dL (7-18) H Creatinine 2.1 MG/DL (0.55-1.30) H 2.4 MG/DL (0.55-1.30) H Estimat Glomerular Filtration Rate 33.2 mL/min (>60) 28.5 mL/min (>60) Glucose Level 98 MG/DL (74-106) 116 MG/DL (74-106) H Calcium Level 9.6 MG/DL (8.5-10.1) 8.5 MG/DL (8.5-10.1) Urine Color Pale yellow Urine Appearance Slightly cloudy Urine pH 5 (4.5-8.0) Urine Specific [place] 1.020 (1.005-1.035) Urine Protein 2+ (NEGATIVE) H Urine Glucose (UA) Negative (NEGATIVE) Urine Ketones Negative (NEGATIVE) Urine Blood 5+ (NEGATIVE) H Urine Nitrite Negative (NEGATIVE) Urine Bilirubin Negative (NEGATIVE) Urine Urobilinogen Normal MG/DL (0.0-1.0) Urine Leukocyte Esterase Negative (NEGATIVE) Urine RBC Tntc /HPF (0 - 0) H Urine WBC 0-2 /HPF (0 - 0) Urine Squamous Epithelial Cells None /LPF (NONE/OCC) Urine Amorphous Sediment Moderate /LPF (NONE) H Urine Bacteria Few /HPF (NONE) Hemoglobin A1c 5.7 % (4.3-6.0) Total Bilirubin 0.2 MG/DL (0.2-1.0) Aspartate Amino Transf (AST/SGOT) 23 U/L (15-37) Alanine Aminotransferase (ALT/SGPT) 37 U/L (12-78) Alkaline Phosphatase 60 U/L (46-116) Total Protein 7.0 G/DL (6.4-8.2) Albumin 3.1 G/DL (3.4-5.0) L Globulin 3.9 g/dL Albumin/Globulin Ratio 0.8 (1.0-2.7) L Triglycerides Level 323 MG/DL (30-150) H Cholesterol Level 178 MG/DL (< 200) LDL Cholesterol 100 mg/dL (<100) HDL Cholesterol 25 MG/DL (40-60) L Cholesterol/HDL Ratio 7.1 (3.3-4.4) H Thyroid Stimulating Hormone (TSH) 6.239 uiU/mL (0.358-3.740) Current Medications Medications (Trade) Dose Ordered Sig/Diane Route PRN Reason Start Time Stop Time Status Last Admin Dose Admin Acetaminophen (Tylenol) 500 mg Q4H PRN ORAL Mild Pain/Temp > 100.5 03/29/19 03:00 04/28/19 01:44 Amlodipine Besylate (Norvasc) 5 mg BID ORAL 03/29/19 18:00 04/28/19 17:59 Bupropion HCl (Wellbutrin SR) 100 mg DAILY ORAL 03/29/19 09:00 04/28/19 08:59 03/29/19 08:10 Ceftriaxone Sodium 1 gm/ Dextrose 55 ml @ 110 mls/hr Q24H IVPB 03/29/19 15:00 04/05/19 14:59 Dextrose/Sodium Chloride 1,000 ml @ 150 mls/hr Q6H40M IV 03/29/19 13:30 04/28/19 13:29 Gabapentin (Neurontin) 600 mg TWICE A DAY ONCE ORAL 03/29/19 18:00 03/29/19 18:01 Lorazepam (Ativan 2mg/ml 1ml) 1 mg Q4H PRN IVP agitation 03/29/19 01:45 04/05/19 01:44 Morphine Sulfate (Morphine Sulfate) 3 mg Q4H PRN IVP Moderate Pain (Pain Scale 4-6) 03/29/19 03:30 04/05/19 02:59 03/29/19 14:21 Non-Formulary Medication (Non-Formulary Med) 1 ea DAILY ORAL 03/29/19 09:00 04/28/19 08:59 UNV Ondansetron HCl (Zofran) 4 mg Q4H PRN IVP Nausea & Vomiting 03/29/19 01:45 04/28/19 01:44 Pantoprazole (Protonix) 40 mg DAILY ORAL 03/29/19 09:00 04/28/19 08:59 03/29/19 08:10 Quetiapine Fumarate (SEROquel) 50 mg DAILY ORAL 03/29/19 09:00 8/4/19 08:59 Sertraline HCl (Zoloft) 150 mg DAILY ORAL 03/29/19 09:00 04/28/19 08:59 03/29/19 08:15 Tamsulosin HCl (Flomax) 0.4 mg QHS ORAL 03/29/19 21:00 04/28/19 20:59 Irwin Waever M.D. Mar 29, 2019 14:30
[2019-03-29] MEDS: cefTRIAXone 1 GM in D5W 55 ML IVPB SCH ×2 (15:00→15:15)
[2019-03-29] MEDS ORDERED: Iothalamate Meglumine 60% 30ML INJ ONE (15:00)
[2019-03-29] MEDS ORDERED: Midazolam 2mg/2ml Inj ONE (15:06)
[2019-03-29] MEDS ORDERED: Alfentanil 2ml Inj ONE (15:06)
[2019-03-29] MEDS ORDERED: LR 1000ml 1,000 ML IVLG SCH (15:16)
[2019-03-29] MEDS ORDERED: Lidocaine 1% MPF 10mg/ml 5ml ONE (15:18)
[2019-03-29] MEDS ORDERED: Dexamethasone 4mg/ml vial ONE (15:18)
[2019-03-29] MEDS ORDERED: Propofol 200mg/20ml IV ONE (15:18)
[2019-03-29] MEDS ORDERED: Sodium Chloride 10ml vial INJ ONE (15:18)
--- NOTE | 2019-03-29 15:20 | Pre-Procedure Note/Attestation ---
Pre-Procedure Note/Attestation Complete Prior to Procedure Planned Procedure: left Procedure Narrative: ureteroscopy, laser lithotripsy, possible JJ stent placement, cystoscopy and fluoroscopy Indications for Procedure Pre-Operative Diagnosis: Left ureteral stone/ hydronephrosis/ colic Attestation I attest that I discussed the nature of the procedure; its benefits; risks and complications; and alternatives (and the risks and benefits of such alternatives ), prior to the procedure, with the patient (or the patient's legal charter representative). I attest that, if there was a reasonable possibility of needing a blood transfusion, the patient (or the patient's legal charter representative) was given the [place] Department [employer] standardized written summary, pursuant to the Dariusz Dupo Blood Safety Act ([place] Health and Safety Code # 1645, as amended). I attest that I re-evaluated the patient just prior to the surgery and that there has been no change in the patient's H&P, except as documented below: Gonzales Calix M.D. Mar 29, 2019 15:20
--- NOTE | 2019-03-29 15:20 | NUR ---
NURSE NOTES: Pt left for procedure at time of abx administration; scheduled abx not given at 1500.
--- NOTE | 2019-03-29 15:27 | Anethesia Preoperative Eval ---
Anesthesia Pre-op PMH/ROS General Date of Evaluation: Mar 29, 2019 Time of Evaluation: 15:24 Anesthesiologist: Niranjan ASA Score: ASA 3 - Emergency Mallampati Score Class I : Soft palate, uvula, fauces, pillars visible Class II: Soft palate, uvula, fauces visible Class III: Soft palate, base of uvula visible Class IV: Only hard plate visible Mallampati Classification: Class II Surgeon: Fifi Diagnosis: Urinary Obstrution Surgical Procedure: Cystoscopy, Stent Placement Anesthesia History: none Family History: no anesthesia problems Allergies: Coded Allergies: No Known Allergies (Unverified , 02/14/19) Medications: see eMAR Patient NPO?: Yes NPO Date: Mar 28, 2019 NPO Time: 1200 Past Medical History Cardiovascular: Reports: HTN Gastrointestinal/Genitourinary: Reports: other - AKF Neurologic/Psychiatric: Reports: depression/anxiety, other - Peripheral Neuropathy Hematology/Immune: Reports: other - HIV, Syphilis Anesthesia Pre-op Phys. Exam Physician Exam Last Vital Signs Date Time Temp Pulse Resp B/P (MAP) Pulse Ox O2 Delivery O2 Flow Rate FiO2 03/29/19 12:00 98.0 69 20 122/72 (89) 97 03/29/19 09:00 Room Air Constitutional: NAD Neurologic: CN 2-12 intact Cardiovascular: RRR Respiratory: CTA Gastrointestinal: S/NT/ND Airway Exam Mallampati Score: Class II MO: full ROM: limited Teeth: missing, intact Anesthesia Pre-op A/P Labs Hematology Test 03/28/19 19:57 03/29/19 06:16 White Blood Count 5.4 K/UL (4.8-10.8) 4.8 K/UL (4.8-10.8) Red Blood Count 4.77 M/UL (4.70-6.10) 4.54 M/UL (4.70-6.10) L Hemoglobin 13.8 G/DL (14.2-18.0) L 12.9 G/DL (14.2-18.0) L Hematocrit 41.1 % (42.0-52.0) L 40.0 % (42.0-52.0) L Mean Corpuscular Volume 86 FL (80-99) 88 FL (80-99) Mean Corpuscular Hemoglobin 29.0 PG (27.0-31.0) 28.4 PG (27.0-31.0) Mean Corpuscular Hemoglobin Concent 33.6 G/DL (32.0-36.0) 32.2 G/DL (32.0-36.0) Red Cell Distribution Width 12.4 % (11.6-14.8) 13.0 % (11.6-14.8) Platelet Count 155 K/UL (150-450) 128 K/UL (150-450) L Mean Platelet Volume 8.5 FL (6.5-10.1) 9.0 FL (6.5-10.1) Neutrophils (%) (Auto) 64.3 % (45.0-75.0) 68.3 % (45.0-75.0) Lymphocytes (%) (Auto) 23.9 % (20.0-45.0) 20.8 % (20.0-45.0) Monocytes (%) (Auto) 8.3 % (1.0-10.0) 8.9 % (1.0-10.0) Eosinophils (%) (Auto) 2.3 % (0.0-3.0) 0.9 % (0.0-3.0) Basophils (%) (Auto) 1.3 % (0.0-2.0) 1.1 % (0.0-2.0) Chemistry Test 03/28/19 19:57 03/29/19 06:16 Sodium Level 137 MMOL/L (136-145) 143 MMOL/L (136-145) Potassium Level 3.5 MMOL/L (3.5-5.1) 3.5 MMOL/L (3.5-5.1) Chloride Level 103 MMOL/L (98-107) 110 MMOL/L (98-107) H Carbon Dioxide Level 24 MMOL/L (21-32) 22 MMOL/L (21-32) Anion Gap 10 mmol/L (5-15) 11 mmol/L (5-15) Blood Urea Nitrogen 26 mg/dL (7-18) H 24 mg/dL (7-18) H Creatinine 2.1 MG/DL (0.55-1.30) H 2.4 MG/DL (0.55-1.30) H Estimat Glomerular Filtration Rate 33.2 mL/min (>60) 28.5 mL/min (>60) Glucose Level 98 MG/DL (74-106) 116 MG/DL (74-106) H Calcium Level 9.6 MG/DL (8.5-10.1) 8.5 MG/DL (8.5-10.1) Hemoglobin A1c 5.7 % (4.3-6.0) Total Bilirubin 0.2 MG/DL (0.2-1.0) Aspartate Amino Transf (AST/SGOT) 23 U/L (15-37) Alanine Aminotransferase (ALT/SGPT) 37 U/L (12-78) Alkaline Phosphatase 60 U/L (46-116) Total Protein 7.0 G/DL (6.4-8.2) Albumin 3.1 G/DL (3.4-5.0) L Globulin 3.9 g/dL Albumin/Globulin Ratio 0.8 (1.0-2.7) L Triglycerides Level 323 MG/DL (30-150) H Cholesterol Level 178 MG/DL (< 200) LDL Cholesterol 100 mg/dL (<100) HDL Cholesterol 25 MG/DL (40-60) L Cholesterol/HDL Ratio 7.1 (3.3-4.4) H Thyroid Stimulating Hormone (TSH) 6.239 uiU/mL (0.358-3.740) Risk Assessment & Plan Assessment: ASA 3E Plan: GA, SED Status Change Before Surgery: No Pre-Antibiotics Dru Gram Ancef IV Given Within 1 Hr of Incision: Yes Time Given: 15:46 Kevin Ureña MD Mar 29, 2019 15:27
--- NOTE | 2019-03-29 15:28 | Immediate Post-Op Evaluation ---
Immediate Post-Op Evalulation Immediate Post-Op Evalulation Procedure: Cystoscopy, Stent Placement Date of Evaluation: Mar 29, 2019 Time of Evaluation: 15:47 IV Fluids: 500 LR Blood Products: 0 Estimated Blood Loss: 10 Urinary Output: 0 Blood Pressure Systolic: 121 Blood Pressure Diastolic: 68 Pulse Rate: 83 Respiratory Rate: 16 O2 Sat by Pulse Oximetry: 100 Temperature (Fahrenheit): 97.2 Pain Score (1-10): 2 Nausea: No Vomiting: No Complications 0 Patient Status: awake, reacts, patent, none Hydration Status: adequate Dru Gram Ancef IV Given Within 1 Hr of Incision: Yes Time Given: 15:46 Kevin Ureña MD Mar 29, 2019 15:28
--- NOTE | 2019-03-29 15:29 | 48 Hour Post Anesthesia Eval ---
Post Anesthesia Evaluation Procedure: Cystoscopy, Stent Placement Date of Evaluation: Mar 29, 2019 Time of Evaluation: 17:51 Blood Pressure Systolic: 133 0: 81 Pulse Rate: 74 Respiratory Rate: 16 Temperature (Fahrenheit): 97.2 O2 Sat by Pulse Oximetry: 100 Airway: patent Nausea: No Vomiting: No Pain Intensity: 2 Hydration Status: adequate Cardiopulmonary Status: Stable Mental Status/LOC: patient returned to baseline Follow-up Care/Observations: 0 Post-Anesthesia Complications: 0 Follow-up care needed: N/A Kevin Ureña MD Mar 29, 2019 15:29
[2019-03-29] MEDS ORDERED: fentaNYL 100 mcg/2 mL IV PRN (15:30)
[2019-03-29] MEDS ORDERED: oxyCODONE HCL/Acetaminophen 5/325mg ORAL PRN (15:30)
[2019-03-29] MEDS ORDERED: LR 1000ml ONE (15:30)
[2019-03-29] MEDS ORDERED: HYDROcodone/Acetamin 5/325 tab ORAL PRN (15:30)
[2019-03-29] MEDS ORDERED: Labetalol 5mg/ml 20ml vial IV PRN (15:30)
[2019-03-29] MEDS ORDERED: HYDROcodone/Acetamin 7.5/325 tab ORAL PRN (15:30)
[2019-03-29] MEDS ORDERED: Midazolam 2mg/2ml Inj IVP PRN (15:30)
[2019-03-29] MEDS ORDERED: Acetaminophen (Non formulary) 100 ML IV ONE (15:30)
[2019-03-29] MEDS ORDERED: DiphenhydrAMINE 50mg/ml Inj IVP PRN (15:30)
[2019-03-29] MEDS ORDERED: Sterile Water Irrig 1000ml IRRIG ONE (15:30)
[2019-03-29] MEDS ORDERED: LORazepam Inj 2mg/ml 1ml IV PRN (15:30)
[2019-03-29] MEDS ORDERED: NS Irrig 1000ml ONE (15:30)
[2019-03-29] MEDS ORDERED: Hydromorphone 0.5mg/0.5ml inj IVP PRN (15:30)
[2019-03-29] MEDS ORDERED: Atropine Sulfate 0.4mg/ml inj IVP PRN (15:30)
--- NOTE | 2019-03-29 16:14 | Operative Note - PDOC ---
Operative Note Operative Note Date of Operation/Procedure: Mar 29, 2019 Pre-op Diagnosis: Left ureteral stone/ hydronephrosis/ colic Procedure: Left ureteroscopy, laser lithotripsy, fluoroscopy Post-op Diagnosis: same as pre-op Operative Findings: consistent w/pre-op dx studies Surgeon: Fifi Anesthesia: general Specimen: none Complications: none Condition: stable Estimated Blood Loss: none Drains: none Implant(s) used?: No Indications for Procedure Left ureteral stone/ hydronephrosis Gonzales Calix M.D. Mar 29, 2019 16:14
--- NOTE | 2019-03-29 16:15 | History and Physical Report ---
DATE OF ADMISSION: 03/28/2019 SOURCE OF INFORMATION: The patient and EMR. HISTORY OF PRESENT ILLNESS: The patient is a 53-year-old male with a history of HIV and kidney stone, who presented with severe left-sided flank pain with radiation to the left inguinal area. At the time of evaluation, the patient denies any chest pain or shortness of breath. No nausea. No vomitus. No diarrhea or constipation. Complaining of persistent pain in the left flank. Initial evaluation in the emergency room shows stable vital signs. Initial imaging shows 4 mm stone on the left UVJ, positive for the hydronephrosis. REVIEW OF SYSTEMS: All 12 elements of review of systems reviewed, pertinent positive and negative as above. PAST SURGICAL HISTORY: Positive for the hernia repair. SOCIAL HISTORY: The patient has two children. Positive for history of addiction to benzodiazepine. Denies any IV drug abuse. ALLERGIES: NKDA. PAST MEDICAL HISTORY: Bilateral renal stones, HIV, addiction to benzodiazepine, currently in the rehabilitation. MEDICATIONS: Current hospital medications including, but not limited to, Flomax, Seroquel, ceftriaxone, and amlodipine. PHYSICAL EXAMINATION: VITAL SIGNS: Blood pressure 140/80, temperature 98.2, pulse oximetry 98% on room air, respiratory rate 18. HEAD AND NECK: Atraumatic and normocephalic. CHEST: Clear to auscultation. HEART: S1, S2. Regular rate and rhythm. ABDOMEN: Soft. No organomegaly. Positive for the bilateral costovertebral angle tenderness. MUSCULOSKELETAL: No gross lateralized motor deficit. NEUROLOGIC: Awake, alert, and oriented x3. LABORATORY DATA: Dated March 28, WBC 5.4, hemoglobin 13.8. Sodium 137, potassium 3.5, BUN 26, and creatinine 2.1. A1c of 5.7. Triglycerides of 323. TSH of 6.2. ASSESSMENT: 1. Acute renal colic. 2. Obstructive left-sided hydronephrosis and partial obstruction of the UVJ. 3. HIV. 4. Bilateral renal stones. 5. Chronic renal failure. 6. Hypercholesterolemia. 7. Hypothyroidism. 8. GI and DVT prophylaxis. PLAN OF CARE: We will pursue with the pain management, the renal ultrasound. We will do the anemia workup. We will start the patient on the cholesterol medication and thyroid medication. COMMENTS: Time of this dictation does not reflect the actual time of encounter. Violeta Betts M.D. DR: KODAK JOB#: [id number] CC: ALPESH
--- NOTE | 2019-03-29 16:45 | Consultation ---
DATE OF CONSULTATION: 03/29/2019 INFECTIOUS DISEASE CONSULTATION CONSULTING PHYSICIAN: Irwin Weaver M.D. REQUESTING PHYSICIAN: Violeta Betts M.D. REASON FOR CONSULTATION: Left ureter obstruction with stone, possible pyelonephritis, recommendation for antibiotics treatment and HIV care. HISTORY OF PRESENT ILLNESS: The patient is a 53-year-old male with past medical history of HIV and renal stone, presented to [facility] with worsening left costophrenic angle pain mainly in the left flank area, radiation down to the left scrotum and rectal area, started yesterday morning. The patient had similar symptom before when he had his stone diagnosed first time on his last admission. Denied any hematuria, but had burning sensation with urination. Attempted to take Tylenol with not much relief, so he presented to the emergency room with this complaint. In the ER, the patient had a CT scan of the abdomen and pelvis with stone protocol and revealed 4 mm stone at the UVJ junction. Urinalysis showed mild infection, so infectious disease consultation was requested for possible antibiotics treatment and for his HIV disease care. REVIEW OF SYSTEMS: A 14-point of system reviewed were all negative apart from the one I mentioned above in my H and P. PAST MEDICAL HISTORY: Significant for HIV and nephrolithiasis. PAST SURGICAL HISTORY: Negative. FAMILY HISTORY: Not contributory. ALLERGIES: No known drug allergy. SOCIAL HISTORY: The patient lives at home. Denies using any drugs, tobacco, or alcohol. MEDICATIONS: He is on Triumeq since a couple of years ago. He received ceftriaxone 1 dose. For the rest of his medications, please refer to [facility]. LABORATORY AND DIAGNOSTIC DATA: Labs showed white count of 4.8, hemoglobin of 12.9, platelet count of 128,000. BUN of 24, creatinine of 2.4, AST of 23, ALT of 37. Urinalysis showed too numerous to count red blood cell, wbc 0-2, and few bacteria. Imaging, renal ultrasound showed moderate left hydroureteronephrosis, bilateral nonobstructive renal stones. Abdomen and pelvis CT scan showed 4 mm stone on the bladder side of the left UVJ associated with moderate hydroureteronephrosis, bilateral nonobstructive renal stone also noted. PHYSICAL EXAMINATION: VITAL SIGNS: Temperature 98, pulse 69, respirations 20, blood pressure 122/72, saturation 97% on room air. GENERAL: A middle-aged male, lying in bed, awake, alert, oriented, not in acute distress. HEENT: Normocephalic, atraumatic. Pupils reactive to light equally. Moist oral mucosa. No exudate or thrush. NECK: Supple. No lymphadenopathy. CARDIOVASCULAR: Regular rate and rhythm. No murmur or gallop. LUNGS: Clear bilaterally. No wheezing or rhonchi. Normal breathing efforts. Left CVA angle tenderness. ABDOMEN: Soft, obese, tender in the left flank area. No organomegaly. No ascites. No rebound. EXTREMITIES: No edema or cyanosis. SKIN: No rash. No hives. ASSESSMENT AND RECOMMENDATION: 1. HIV disease. We will continue Triumeq. Obtain viral load and CD4 count. Assesses his compliance. The patient to follow up with his HIV provider as an outpatient. 2. Left ureteral stone with moderate hydronephrosis. Start ceftriaxone empirically to cover for possible pyelonephritis. Send urine culture. Urology evaluation is in progress. May need cystoscopy. 3. Renal insufficiency, chronic. Continue hydration. May benefit from stone removal to prevent worsening hydronephrosis and to improve his renal function. Continue hydration. Follow up with Renal. Thank you for the consult. ID will continue to follow. Irwin Weaver M.D. DR: Toñito JOB#: [id number] CC:
--- NOTE | 2019-03-29 17:30 | Procedure Note ---
DATE OF PROCEDURE: 03/29/2019 PREOPERATIVE DIAGNOSIS: Left distal ureteral stone with hydronephrosis and colic secondary to same. POSTOPERATIVE DIAGNOSIS: Left distal ureteral stone with hydronephrosis and colic secondary to same. PROCEDURE PERFORMED: Left ureteroscopy, laser lithotripsy, and fluoroscopy. SURGEON: Gonzales Calix M.D. ANESTHESIA: General/LMA. ANESTHESIOLOGIST: Kevin Ureña M.D., attending ESTIMATED BLOOD LOSS: None. IV FLUIDS: IV crystalloid only. DRAINS, TUBES, AND CATHETERS: None. SPECIMENS: None. COMPLICATIONS: None. OPERATIVE INDICATION: The patient is a 53-year-old gentleman with a history of a distal left ureteral stone with hydronephrosis and colic secondary to same. The same stone was present approximately 6 weeks ago on imaging here. After evaluation and consultation with me, he elected to undergo the procedure as described above. Once medical clearance was obtained, he was scheduled for this procedure at [facility] on March 29, 2019 OPERATIVE NOTE IN DETAIL: The patient was brought to the operating room and placed on the table in supine position. General anesthesia was then induced. Once the patient had his LMA in place, he was repositioned in dorsal lithotomy, draped and prepped in the usual sterile fashion. Using a 21-Slovenian cystoscope, the patient's urethral meatus was calibrated and the scope was passed along the length of the urethra. Urethra and prostate were within normal limits. The bladder was then entered and inspected. There was no evidence of masses, tumors or stone and both ureteral orifices were identified. Attention was turned to the left ureteral orifice into which a 0.035 Glidewire was cannulated and passed up into the left renal collecting system with a good curl noted fluoroscopically within the kidney. Once the wire was in place, the cystoscope was removed and the flexible ureteroscope was back fed over the wire and into the distal ureter. The stone was almost immediately encountered. Using a 365 holmium laser fiber at a setting of 0.8 joules and 8 hertz, I fragmented the stone in its entirety. Once this was done, I could advance the scope all the way up into the mid and proximal ureter and renal pelvis with no further evidence of obstruction or abnormality. A descending ureteroscopy confirmed the same and that there were no significant remaining stone fragments. As the ureteroscopy had been atraumatic, decision was made not to leave a stent. The ureteroscope was removed. The patient taken out of dorsal lithotomy and placed back in supine position. He was cleaned, dried, and dressed. He was awakened and extubated without difficulty and transported to recovery in stable condition. I was present and scrubbed for the entire duration of this case. All needle, sponge, and instrument counts were reported correct. Gonzales Calix M.D. DR: Catalina JOB#: [id number] CC:
--- NOTE | 2019-03-29 19:52 | NUR ---
HAND-OFF: Report given to JULIO Yen.
--- NOTE | 2019-03-29 19:56 | NUR ---
NURSE NOTES: Received report from JULIO Hankins. Patient A&Ox4. On room air, no signs of distress or labored breathing. IV intact, patent, and saline locked. Will continue with plan of care.
[2019-03-29] MEDS: Tamsulosin 0.4mg cap ORAL SCH (20:53)
[2019-03-30] VITALS: BP 133/64
[2019-03-30 04:00] VITALS: BP 139/75
[2019-03-30] MEDS: D5 1/2NS 1,000 ML IV SCH ×5 (04:07→20:51)
--- NOTE | 2019-03-30 07:30 | NUR ---
NURSE NOTES: Received pt from JULIO VALDEZ. Pt is alert and orient x4. pt is in RA, No SOB or acute respiratory distress noted. pt has intact iv access LAC 20G is running well. pt is eating breakfast independently. RN asked pt to bring HIV meds and pt stated his daughter will bring today. all needs attended, bed is locked and is in the lowest position. call light within easy reach. will continue to monitor.
[2019-03-30 07:39] LABS: HEMATOCRIT 39.1 % (42.0-52.0); HEMOGLOBIN 12.7 G/DL (14.2-18.0); MEAN CORPUSCULAR VOLUME 89 FL (80-99); PLATELET COUNT 155 K/UL (150-450); RED BLOOD COUNT 4.38 M/UL (4.70-6.10); RED CELL DISTRIBUTION WIDTH 13.2 % (11.6-14.8); WHITE BLOOD COUNT 7.4 K/UL (4.8-10.8)
[2019-03-30 08:00] VITALS: BP 101/62
[2019-03-30 08:09] LABS: ALANINE AMINOTRANSFERASE 26 U/L (12-78); ALBUMIN 3.2 G/DL (3.4-5.0); ALBUMIN/GLOBULIN RATIO 0.8 (1.0-2.7); ALKALINE PHOSPHATASE 63 U/L (46-116); ANION GAP 10 mmol/L (5-15); ASPARTATE AMINO TRANSFERASE 18 U/L (15-37); BILIRUBIN,TOTAL 0.2 MG/DL (0.2-1.0); BLOOD UREA NITROGEN 25 mg/dL (7-18); CALCIUM 8.4 MG/DL (8.5-10.1); CARBON DIOXIDE 21 MMOL/L (21-32); CHLORIDE 107 MMOL/L (98-107); CHOLESTEROL 194 MG/DL (< 200); CREATINE KINASE 137 U/L (26-308); CREATININE 2.1 MG/DL (0.55-1.30); GAMMA GLUTAMYL TRANSPEPTIDASE 21 U/L (5-85); HDL CHOLESTEROL 28 MG/DL (40-60); PHOSPHORUS 3.4 MG/DL (2.5-4.9); POTASSIUM 4.3 MMOL/L (3.5-5.1); SODIUM 138 MMOL/L (136-145); TRIGLYCERIDES 393 MG/DL (30-150)
--- NOTE | 2019-03-30 08:29 | NUR ---
HAND-OFF: Report given to JULIO Mcgraw.
[2019-03-30] MEDS: BuPROPion SR 100mg tab ORAL SCH (09:03)
[2019-03-30] MEDS: Sertraline 50mg tab ORAL SCH (09:04)
[2019-03-30] MEDS: Morphine Sulfate 4mg/ml Inj (IV USE ONLY) IVP PRN (09:05)
[2019-03-30 12:00] VITALS: BP 110/64
[2019-03-30] MEDS: cefTRIAXone 1 GM in D5W 55 ML IVPB SCH (14:00)
--- NOTE | 2019-03-30 14:30 | NUR ---
NURSE NOTES: Dr LIGHT notified that Dr MCGRATH cleared pt to D/C, stated wait till he comes to visit pt. will continue to monitor.
--- NOTE | 2019-03-30 15:52 | NUR ---
CASE MANAGEMENT: REVIEW SI: RAHEL . URINARY OBSTRUCTION . CYSTOSCOPY, STENT PLACEMENT 03/29 T 97.5 HR 67 RR 18 BP 139/75 SAT 98% ROOM AIR BUN 25 CR 2. URIC ACID 8.3 IS: FLOMAX PO QHS CEFTRIAXONE IV Q24HR D5 1/ NS IVF @ 150ML/HR MORPHINE 3MG IV Q4HR PRN REGULAR PO DIET MED/SURG STATUS DCP: PATIENT IS FROM HOME
[2019-03-30 15:58] VITALS: BP 121/75
--- NOTE | 2019-03-30 16:21 | Nephrology Progress Note ---
Assessment/Plan Problem List: (1) HIV disease (2) Hydronephrosis (3) Acute kidney failure (4) Left ureteral stone (5) Drug abuse in remission Assessment renal failure- Etiology? acute on chronic HTN Kidney stone, Left hydro HIV Depression Drug abuse Obese Plan Uro intervention 03/29 BP control avoid Nephrotoxics monitor renal parameters stop Toradol and Zestril due to elevated Cr LAXATIVES Subjective ROS Limited/Unobtainable: No Constitutional: Reports: malaise, other - constipation Objective Objective Last 24 Hour Vital Signs Date Time Temp Pulse Resp B/P (MAP) Pulse Ox O2 Delivery O2 Flow Rate FiO2 03/30/19 15:58 98.2 60 20 121/75 (90) 97 03/30/19 12:00 98.1 60 18 110/64 (79) 98 03/30/19 09:05 98.3 03/30/19 09:00 Room Air 03/30/19 09:00 61 101/62 03/30/19 08:00 98.3 61 18 101/62 (75) 99 03/30/19 04:00 97.5 67 18 139/75 (96) 98 03/30/19 00:00 97.8 98 18 133/64 (87) 98 03/29/19 21:00 Room Air 03/29/19 20:00 98.0 108 20 128/82 (97) 98 03/29/19 18:00 68 114/87 03/29/19 17:20 97.8 68 13 114/87 98 Nasal Cannula 3 03/29/19 17:05 70 16 131/73 100 Nasal Cannula 3 03/29/19 16:55 78 15 119/65 100 Simple Mask 6 03/29/19 16:45 73 15 127/68 100 Simple Mask 6 03/29/19 16:40 78 16 120/63 100 Simple Mask 6 03/29/19 16:39 74 16 100 03/29/19 16:37 83 16 100 03/29/19 16:36 97.2 82 21 116/68 100 Simple Mask 6 Intake and Output 03/29/19 03/30/19 18:59 06:59 Intake Total 600 ml Output Total 10 ml Balance 590 ml Intake IV Total 600 ml Output Estimated Blood Loss 10 ml Laboratory Tests 03/30/19 05:33: White Blood Count 7.4#, Red Blood Count 4.38L, Hemoglobin 12.7L, Hematocrit 39.1L, Mean Corpuscular Volume 89, Mean Corpuscular Hemoglobin 28.9, Mean Corpuscular Hemoglobin Concent 32.4, Red Cell Distribution Width 13.2, Platelet Count 155, Mean Platelet Volume 9.3, Neutrophils (%) (Auto) , Lymphocytes (%) ( Auto) , Monocytes (%) (Auto) , Eosinophils (%) (Auto) , Basophils (%) (Auto) , Differential Total Cells Counted 100, Neutrophils % (Manual) 91H, Lymphocytes % (Manual) 7L, Monocytes % (Manual) 2, Eosinophils % (Manual) 0, Basophils % ( Manual) 0, Band Neutrophils 0, Platelet Estimate Adequate, Platelet Morphology Normal, Red Blood Cell Morphology Normal, Sodium Level 138, Potassium Level 4.3 , Chloride Level 107, Carbon Dioxide Level 21, Anion Gap 10, Blood Urea Nitrogen 25H, Creatinine 2.1H, Estimat Glomerular Filtration Rate 33.2, Glucose Level 184H, Hemoglobin A1c 5.6, Uric Acid 8.3H, Calcium Level 8.4L, Phosphorus Level 3.4, Magnesium Level 1.9, Total Bilirubin 0.2, Gamma Glutamyl Transpeptidase 21, Aspartate Amino Transf (AST/SGOT) 18, Alanine Aminotransferase (ALT/SGPT) 26, Alkaline Phosphatase 63, Total Creatine Kinase 137, C-Reactive Protein, Quantitative 9.6H, Pro-B-Type Natriuretic Peptide 510H , Total Protein 7.1, Albumin 3.2L, Globulin 3.9, Albumin/Globulin Ratio 0.8L, Triglycerides Level 393H, Cholesterol Level 194, LDL Cholesterol 115H, HDL Cholesterol 28L, Cholesterol/HDL Ratio 6.9H, Thyroid Stimulating Hormone (TSH) 1.005 Height (Feet): 5 Height (Inches): 10.00 Weight (Pounds): 200 General Appearance: no apparent distress Cardiovascular: normal peripheral pulses Respiratory/Chest: decreased breath sounds Abdomen: soft, distended River Smith MD Mar 30, 2019 16:21
[2019-03-30] MEDS ORDERED: Milk of Magnesia 30ml Ud ORAL PRN (16:30)
[2019-03-30] MEDS ORDERED: Milk of Magnesia 30ml Ud ORAL SCH (16:30)
[2019-03-30] MEDS: Docusate 100mg cap ORAL SCH (17:08)
[2019-03-30] MEDS ORDERED: NORVASC5 MG ORAL (18:50)
--- NOTE | 2019-03-30 19:10 | NUR ---
HAND-OFF: Report given to JULIO AGUILERA.
--- NOTE | 2019-03-30 19:20 | General Progress Note ---
Assessment/Plan Status: stable Assessment/Plan: S: I have flank pain O: seems in mild distress. Minimal hematuria PHYSICAL EXAMINATION: HEAD AND NECK: Atraumatic and normocephalic. CHEST: Clear to auscultation.HEART: S1, S2. Regular rate and rhythm. ABDOMEN: Soft. No organomegaly. Positive for the bilateral costovertebral angle tenderness.MUSCULOSKELETAL: No gross lateralized motor deficit. NEUROLOGIC: Awake, alert, and oriented x3. LABORATORY DATA: Dated March 30 reviewed ASSESSMENT: 1. Acute renal colic. 2. Obstructive left-sided hydronephrosis and partial obstruction of the UVJ. 3. HIV. 4. Bilateral renal stones. 5. Chronic renal failure. 6. Hypercholesterolemia. 7. Hypothyroidism. 8. GI and DVT prophylaxi Plan; notes from ID,Nephro reviewed Per RN, Urology cleared patient. Labs are pending Subjective Allergies: Coded Allergies: No Known Allergies (Unverified , 02/14/19) Objective Last 24 Hour Vital Signs Date Time Temp Pulse Resp B/P (MAP) Pulse Ox O2 Delivery O2 Flow Rate FiO2 03/30/19 17:05 60 121/75 03/30/19 15:58 98.2 60 20 121/75 (90) 97 03/30/19 12:00 98.1 60 18 110/64 (79) 98 03/30/19 09:05 98.3 03/30/19 09:00 Room Air 03/30/19 09:00 61 101/62 03/30/19 08:00 98.3 61 18 101/62 (75) 99 03/30/19 04:00 97.5 67 18 139/75 (96) 98 03/30/19 00:00 97.8 98 18 133/64 (87) 98 03/29/19 21:00 Room Air 03/29/19 20:00 98.0 108 20 128/82 (97) 98 Intake and Output 03/29/19 03/30/19 19:00 07:00 Intake Total 600 ml Output Total 10 ml Balance 590 ml IV Total 600 ml Output Estimated Blood Loss 10 ml Laboratory Tests 03/30/19 05:33: White Blood Count 7.4#, Red Blood Count 4.38L, Hemoglobin 12.7L, Hematocrit 39.1L, Mean Corpuscular Volume 89, Mean Corpuscular Hemoglobin 28.9, Mean Corpuscular Hemoglobin Concent 32.4, Red Cell Distribution Width 13.2, Platelet Count 155, Mean Platelet Volume 9.3, Neutrophils (%) (Auto) , Lymphocytes (%) ( Auto) , Monocytes (%) (Auto) , Eosinophils (%) (Auto) , Basophils (%) (Auto) , Differential Total Cells Counted 100, Neutrophils % (Manual) 91H, Lymphocytes % (Manual) 7L, Monocytes % (Manual) 2, Eosinophils % (Manual) 0, Basophils % ( Manual) 0, Band Neutrophils 0, Platelet Estimate Adequate, Platelet Morphology Normal, Red Blood Cell Morphology Normal, Sodium Level 138, Potassium Level 4.3 , Chloride Level 107, Carbon Dioxide Level 21, Anion Gap 10, Blood Urea Nitrogen 25H, Creatinine 2.1H, Estimat Glomerular Filtration Rate 33.2, Glucose Level 184H, Hemoglobin A1c 5.6, Uric Acid 8.3H, Calcium Level 8.4L, Phosphorus Level 3.4, Magnesium Level 1.9, Total Bilirubin 0.2, Gamma Glutamyl Transpeptidase 21, Aspartate Amino Transf (AST/SGOT) 18, Alanine Aminotransferase (ALT/SGPT) 26, Alkaline Phosphatase 63, Total Creatine Kinase 137, C-Reactive Protein, Quantitative 9.6H, Pro-B-Type Natriuretic Peptide 510H , Total Protein 7.1, Albumin 3.2L, Globulin 3.9, Albumin/Globulin Ratio 0.8L, Triglycerides Level 393H, Cholesterol Level 194, LDL Cholesterol 115H, HDL Cholesterol 28L, Cholesterol/HDL Ratio 6.9H, Thyroid Stimulating Hormone (TSH) 1.005 Height (Feet): 5 Height (Inches): 10.00 Weight (Pounds): 200 Viloeta Betts MD Mar 30, 2019 19:20
--- NOTE | 2019-03-30 19:24 | NUR ---
NURSE NOTES: Received patient awake,verbal,no complaints. Patient requested to be discharged tomorrow morning. said it is OK.
--- NOTE | 2019-03-30 19:38 | Infectious Diseases Prog Note ---
Assessment/Plan Problems: (1) HIV disease Assessment & Plan: continue trimeque , will obtain viral load and CD4 counts , follow up with HIV provider (2) Left ureteral stone Assessment & Plan: with mod hydronephrosis , start ceftriaxone empirically to cover for possible pyelonephritis , send urine culture, urology is following (3) Renal insufficiency Assessment & Plan: chronic, continue hydration, may need stone removal to prevent worsening hydronephrosis , and to improve renal function Subjective Constitutional: Reports: no symptoms HEENT: Reports: no symptoms Respiratory: Reports: no symptoms Breasts: Reports: no symptoms Cardiovascular: Reports: no symptoms Gastrointestinal/Abdominal: Reports: no symptoms Genitourinary: Reports: dysuria, other - flank pain Neurologic: Reports: no symptoms Psychiatric: Reports: no symptoms Skin: Reports: no symptoms Endocrine: Reports: no symptoms Hematologic: Reports: no symptoms Musculoskeletal: Reports: no symptoms Allergies: Coded Allergies: No Known Allergies (Unverified , 02/14/19) Objective Vital Signs Last 24 Hour Vital Signs Date Time Temp Pulse Resp B/P (MAP) Pulse Ox O2 Delivery O2 Flow Rate FiO2 03/30/19 17:05 60 121/75 03/30/19 15:58 98.2 60 20 121/75 (90) 97 03/30/19 12:00 98.1 60 18 110/64 (79) 98 03/30/19 09:05 98.3 03/30/19 09:00 Room Air 03/30/19 09:00 61 101/62 03/30/19 08:00 98.3 61 18 101/62 (75) 99 03/30/19 04:00 97.5 67 18 139/75 (96) 98 03/30/19 00:00 97.8 98 18 133/64 (87) 98 03/29/19 21:00 Room Air 03/29/19 20:00 98.0 108 20 128/82 (97) 98 Height (Feet): 5 Height (Inches): 10.00 Weight (Pounds): 200 General Appearance: WD/WN, no acute distress HEENT: normocephalic, atraumatic, anicteric, mucous membranes moist, PERRL Respiratory/Chest: chest wall non-tender, lungs clear, normal breath sounds, no respiratory distress, no accessory muscle use Cardiovascular: normal peripheral pulses, normal rate, regular rhythm, no gallop/murmur, no JVD Abdomen: normal bowel sounds, soft, non tender, no organomegaly, non distended , no mass, no scars Genitourinary: normal external genitalia, other - left CVA tenderness Extremities: no cyanosis, no clubbing Skin: no rash, no lesions, no ulcers Neurologic/Psychiatric: fagot heater II-XII grossly normal, alert, oriented x 3, responsive Lymphatic: no neck adenopathy, no groin adenopathy Musculoskeletal: normal muscle bulk, no effusion Microbiology Date/Time Source Procedure Growth Status 03/29/19 14:30 Urine,Clean Catch Urine Culture - Preliminary NO GROWTH Resulted Laboratory Tests Test 03/30/19 05:33 White Blood Count 7.4 K/UL (4.8-10.8) # Red Blood Count 4.38 M/UL (4.70-6.10) L Hemoglobin 12.7 G/DL (14.2-18.0) L Hematocrit 39.1 % (42.0-52.0) L Mean Corpuscular Volume 89 FL (80-99) Mean Corpuscular Hemoglobin 28.9 PG (27.0-31.0) Mean Corpuscular Hemoglobin Concent 32.4 G/DL (32.0-36.0) Red Cell Distribution Width 13.2 % (11.6-14.8) Platelet Count 155 K/UL (150-450) Mean Platelet Volume 9.3 FL (6.5-10.1) Neutrophils (%) (Auto) % (45.0-75.0) Lymphocytes (%) (Auto) % (20.0-45.0) Monocytes (%) (Auto) % (1.0-10.0) Eosinophils (%) (Auto) % (0.0-3.0) Basophils (%) (Auto) % (0.0-2.0) Differential Total Cells Counted 100 Neutrophils % (Manual) 91 % (45-75) H Lymphocytes % (Manual) 7 % (20-45) L Monocytes % (Manual) 2 % (1-10) Eosinophils % (Manual) 0 % (0-3) Basophils % (Manual) 0 % (0-2) Band Neutrophils 0 % (0-8) Platelet Estimate Adequate Platelet Morphology Normal Red Blood Cell Morphology Normal Sodium Level 138 MMOL/L (136-145) Potassium Level 4.3 MMOL/L (3.5-5.1) Chloride Level 107 MMOL/L (98-107) Carbon Dioxide Level 21 MMOL/L (21-32) Anion Gap 10 mmol/L (5-15) Blood Urea Nitrogen 25 mg/dL (7-18) H Creatinine 2.1 MG/DL (0.55-1.30) H Estimat Glomerular Filtration Rate 33.2 mL/min (>60) Glucose Level 184 MG/DL (74-106) H Hemoglobin A1c 5.6 % (4.3-6.0) Uric Acid 8.3 MG/DL (2.6-7.2) H Calcium Level 8.4 MG/DL (8.5-10.1) L Phosphorus Level 3.4 MG/DL (2.5-4.9) Magnesium Level 1.9 MG/DL (1.8-2.4) Total Bilirubin 0.2 MG/DL (0.2-1.0) Gamma Glutamyl Transpeptidase 21 U/L (5-85) Aspartate Amino Transf (AST/SGOT) 18 U/L (15-37) Alanine Aminotransferase (ALT/SGPT) 26 U/L (12-78) Alkaline Phosphatase 63 U/L (46-116) Total Creatine Kinase 137 U/L (26-308) C-Reactive Protein, Quantitative 9.6 mg/dL (0.00-0.90) H Pro-B-Type Natriuretic Peptide 510 pg/mL (0-125) H Total Protein 7.1 G/DL (6.4-8.2) Albumin 3.2 G/DL (3.4-5.0) L Globulin 3.9 g/dL Albumin/Globulin Ratio 0.8 (1.0-2.7) L Triglycerides Level 393 MG/DL (30-150) H Cholesterol Level 194 MG/DL (< 200) LDL Cholesterol 115 mg/dL (<100) H HDL Cholesterol 28 MG/DL (40-60) L Cholesterol/HDL Ratio 6.9 (3.3-4.4) H Thyroid Stimulating Hormone (TSH) 1.005 uiU/mL (0.358-3.740) Current Medications Medications (Trade) Dose Ordered Sig/Diane Route PRN Reason Start Time Stop Time Status Last Admin Dose Admin Acetaminophen (Tylenol) 500 mg Q4H PRN ORAL Mild Pain/Temp > 100.5 03/29/19 03:00 04/28/19 01:44 Amlodipine Besylate (Norvasc) 5 mg BID ORAL 03/29/19 18:00 04/28/19 17:59 03/30/19 17:05 Bupropion HCl (Wellbutrin SR) 100 mg DAILY ORAL 03/29/19 09:00 04/28/19 08:59 03/30/19 09:03 Ceftriaxone Sodium 1 gm/ Dextrose 55 ml @ 110 mls/hr Q24H IVPB 03/29/19 15:00 04/05/19 14:59 03/30/19 14:00 Dextrose/Sodium Chloride 1,000 ml @ 75 mls/hr [id number] IV 03/30/19 16:30 04/29/19 16:29 03/30/19 17:04 Docusate Sodium (Colace) 100 mg THREE TIMES A DAY ORAL 03/30/19 18:00 04/29/19 17:59 03/30/19 17:08 Lorazepam (Ativan 2mg/ml 1ml) 1 mg Q4H PRN IVP agitation 03/29/19 01:45 04/05/19 01:44 Magnesium Hydroxide (Mom) 30 ml HSPRN PRN ORAL Constipation 03/30/19 16:30 04/29/19 16:29 Morphine Sulfate (Morphine Sulfate) 3 mg Q4H PRN IVP Moderate Pain (Pain Scale 4-6) 03/29/19 03:30 04/05/19 02:59 03/30/19 09:05 Non-Formulary Medication (Non-Formulary Med) 1 ea DAILY ORAL 03/29/19 09:00 04/28/19 08:59 UNV Ondansetron HCl (Zofran) 4 mg Q4H PRN IVP Nausea & Vomiting 03/29/19 01:45 04/28/19 01:44 Pantoprazole (Protonix) 40 mg DAILY ORAL 03/29/19 09:00 04/28/19 08:59 03/30/19 09:04 Quetiapine Fumarate (SEROquel) 50 mg QHS ORAL 03/29/19 21:00 04/28/19 08:59 03/29/19 20:47 Sertraline HCl (Zoloft) 150 mg DAILY ORAL 03/29/19 09:00 04/28/19 08:59 03/30/19 09:04 Tamsulosin HCl (Flomax) 0.4 mg QHS ORAL 03/29/19 21:00 04/28/19 20:59 03/29/19 20:53 Irwin Weaver M.D. Mar 30, 2019 19:38
[2019-03-30 20:00] VITALS: BP 111/63
[2019-03-30] MEDS: Tamsulosin 0.4mg cap ORAL SCH (20:51)
[2019-03-31] VITALS: BP 118/68
[2019-03-31 04:00] VITALS: BP 127/70
--- NOTE | 2019-03-31 07:25 | NUR ---
NURSE NOTES: Received pt from JULIO AGUILERA. Pt is alert and orient x4. pt is in RA, No SOB or acute respiratory distress noted. pt has intact iv access LAC 20G is running well. pt is eating breakfast independently. Pt knows to D/CF today. all needs attended, bed is locked and is in the lowest position. call light within easy reach. will continue to monitor.
[2019-03-31 07:30] LABS: HEMATOCRIT 37.4 % (42.0-52.0); MEAN CORPUSCULAR VOLUME 89 FL (80-99); PLATELET COUNT 137 K/UL (150-450); RED BLOOD COUNT 4.19 M/UL (4.70-6.10); RED CELL DISTRIBUTION WIDTH 13.4 % (11.6-14.8); WHITE BLOOD COUNT 5.6 K/UL (4.8-10.8)
[2019-03-31] MEDS ORDERED: COLACE100 MG ORAL (07:53)
[2019-03-31 08:00] VITALS: BP 105/62
[2019-03-31 08:07] LABS: ALANINE AMINOTRANSFERASE 24 U/L (12-78); ALBUMIN/GLOBULIN RATIO 0.8 (1.0-2.7); ALKALINE PHOSPHATASE 55 U/L (46-116); ANION GAP 9 mmol/L (5-15); ASPARTATE AMINO TRANSFERASE 16 U/L (15-37); BILIRUBIN,TOTAL 0.2 MG/DL (0.2-1.0); BLOOD UREA NITROGEN 20 mg/dL (7-18); CALCIUM 8.7 MG/DL (8.5-10.1); CARBON DIOXIDE 24 MMOL/L (21-32); CHLORIDE 112 MMOL/L (98-107); CREATININE 1.6 MG/DL (0.55-1.30); PHOSPHORUS 2.3 MG/DL (2.5-4.9); POTASSIUM 4.1 MMOL/L (3.5-5.1); SODIUM 145 MMOL/L (136-145)
[2019-03-31 08:24] VITALS: BP 105/62
[2019-03-31] MEDS: Sertraline 50mg tab ORAL SCH (08:24)
[2019-03-31] MEDS: Docusate 100mg cap ORAL SCH (08:24)
[2019-03-31] MEDS: BuPROPion SR 100mg tab ORAL SCH (08:24)
[2019-03-31] MEDS ORDERED: Phospha 250 Neutral tab ORAL SCH (09:45)
--- NOTE | 2019-03-31 10:23 | NUR ---
NURSE NOTES: pt has D/C order. all discharge assessments and instructions done and pt verbally confirmed to understand all. pt is stable. V/S stable. pt has prescription, given to pt and pt asked to take it to his pharmacy by himself. iv access D/C. All belongings are with pt. pt left hospital with accompany of his daughter.
--- NOTE | 2019-03-31 11:44 | Nephrology Progress Note ---
Assessment/Plan Problem List: (1) HIV disease (2) Hydronephrosis (3) Acute kidney failure (4) Left ureteral stone (5) Drug abuse in remission Assessment renal failure- Etiology? acute on chronic HTN Kidney stone, Left hydro HIV Depression Drug abuse Obese Plan Cr down 1.6 PO Neutrophos Uro intervention 03/29 BP control avoid Nephrotoxics monitor renal parameters stop Toradol and Zestril due to elevated Cr LAXATIVES Objective Objective Last 24 Hour Vital Signs Date Time Temp Pulse Resp B/P (MAP) Pulse Ox O2 Delivery O2 Flow Rate FiO2 03/31/19 09:00 Room Air 03/31/19 08:24 90 105/62 03/31/19 08:00 98.8 90 19 105/62 (76) 96 03/31/19 04:00 98.1 70 18 127/70 (89) 96 03/31/19 00:00 98.8 78 20 118/68 (85) 96 03/30/19 21:00 Room Air 03/30/19 20:00 99.0 71 20 111/63 (79) 96 03/30/19 17:05 60 121/75 03/30/19 15:58 98.2 60 20 121/75 (90) 97 03/30/19 12:00 98.1 60 18 110/64 (79) 98 Intake and Output 03/30/19 03/31/19 18:59 06:59 Intake Total 1960 ml 750 ml Balance 1960 ml 750 ml Intake Oral 480 ml IV Total 1480 ml 750 ml Laboratory Tests 03/31/19 06:40: White Blood Count 5.6, Red Blood Count 4.19L, Hemoglobin 12.0L, Hematocrit 37.4L , Mean Corpuscular Volume 89, Mean Corpuscular Hemoglobin 28.7, Mean Corpuscular Hemoglobin Concent 32.2, Red Cell Distribution Width 13.4, Platelet Count 137L, Mean Platelet Volume 8.5, Neutrophils (%) (Auto) , Lymphocytes (%) ( Auto) , Monocytes (%) (Auto) , Eosinophils (%) (Auto) , Basophils (%) (Auto) , Differential Total Cells Counted 100, Neutrophils % (Manual) 65, Lymphocytes % ( Manual) 27, Monocytes % (Manual) 5, Eosinophils % (Manual) 3, Basophils % ( Manual) 0, Band Neutrophils 0, Platelet Estimate DecreasedL, Platelet Morphology Normal, Red Blood Cell Morphology , Hypochromasia 1+, Sodium Level 145, Potassium Level 4.1, Chloride Level 112H, Carbon Dioxide Level 24, Anion Gap 9, Blood Urea Nitrogen 20H, Creatinine 1.6H, Estimat Glomerular Filtration Rate 45.4, Glucose Level 113H, Calcium Level 8.7, Phosphorus Level 2.3L, Magnesium Level 2.2, Total Bilirubin 0.2, Aspartate Amino Transf (AST/SGOT) 16, Alanine Aminotransferase (ALT/SGPT) 24, Alkaline Phosphatase 55, Total Protein 6.9, Albumin 3.0L, Globulin 3.9, Albumin/Globulin Ratio 0.8L Height (Feet): 5 Height (Inches): 10.00 Weight (Pounds): 200 River Smith MD Mar 31, 2019 11:44
--- NOTE | 2019-04-01 08:12 | Discharge Summary ---
Discharge Summary Discharge Summary _ DATE OF ADMISSION: 03/28/2019 DATE OF DISCHARGE: 03/31/2019 DISCHARGED BY: Dr. Betts REASON FOR ADMISSION: 53 years old male with past medical history of hypertension, nephrolithiasis, peripheral neuropathy, chronic renal insufficiency, hypothyroidism, hypercholesterolemia, HIV status, benzodiazepine addiction currently in rehabilitation, presented with severe left-sided flank pain, radiating to the left inguinal area. At the time of evaluation patient denied chest pain or shortness of breath. No nausea, no vomiting. No diarrhea or constipation. No fever or chills. Initial evaluation in emergency room revealed stable vital signs. Laboratory work-up revealed no leukocytosis, stable hemoglobin and hematocrit. BUN 26, creatinine 2.1. Renal ultrasound demonstrated moderate left hydroureteronephrosis. CT of the abdomen and pelvis revealed 4 mm stone on the bladder side of the left UVJ , associated with moderate hydroureteronephrosis. Bilateral nonobstructive renal stones also noted. Urinalysis revealed hematuria, but no clear evidence of UTI. In ED patient received 1 L of fluid, medicated for pain and admitted for further management. CONSULTANTS: ID specialist Dr. Weaver medical secretary teacher Dr. Smith urologist Dr. Calix [facility] HOSPITAL COURSE: Patient admitted to medical surgical floor. Patient started on generous IV hydration. Pain management was addressed. Nephrology, urology, and ID consults were requested. Home medication were resumed. DVT and GI prophylaxis provided Urologist seen and evaluated patient. Patient subsequently undergone on 03/29 left ureteroscopy, laser lithotripsy and fluoroscopy. Pain management was addressed. Thread Clipper followed. Patient was continued on IV hydration. Per medical secretary teacher, patient had renal failure, acute on chronic with unclear etiology. Toradol and Zestril were stopped due to elevated creatinine. Renal parameters and electrolytes were closely monitored. Electrolytes corrected as needed. Nephrotoxins were avoided. Creatinine from initial 2.1 down to 1.6. Supportive care provided. Bowel regimen instituted. Flomax continued. Blood pressure was managed with calcium channel edgar and remained stable. Urine culture was negative Patient was continued on trimeque. CD4 count 281. Viral load was ordered , still pending at the time of this dictation. Patient to follow-up with his HIV provider as outpatient. Patient clinically stabilized and was ready for discharge home FINAL DIAGNOSES: Acute renal colic Obstructive left-sided hydronephrosis due to left distal ureteral stone Status post left ureteroscopy, laser lithotripsy and fluoroscopy HIV disease Bilateral nonobstructive nephrolithiasis Acute on chronic renal failure Hypercholesterolemia Hypothyroidism Drug abuse, in remission DISCHARGE MEDICATIONS: See Medication Reconciliation list. DISCHARGE INSTRUCTIONS: Patient was discharged home . Follow up with primary care provider in one week. I have been assigned to dictate discharge summary for this account. I was not involved in the patient's management. Shantal Anaya NP Apr 01, 2019 08:12
--- NOTE | 2019-04-01 11:32 | NUR ---
INSURANCE DENIAL FAX RECEIVED, RESENT ADDITIONAL INFORMATION REQUESTED [facility] FX: [phone] PH: [phone] PH:[phone] PLEASE FAX THE REVIEW AND CLINICAL
== END 2019-03-31 10:10 | disposition home or self-care (01) | DRG 446 ==
LOC: EMR 20:10 → 4E 21:55 → EDBEDREQ 03-29 01:55 → 4E 03-29 17:20
PROC: 0TC78ZZ Extirpation of Matter from Left Ureter, Via Natural or Artificial Opening Endoscopic (ICD-10-PCS; principal; 2019-03-29 15:30)
DX: N13.2 Hydronephrosis with renal and ureteral calculous obstruction (principal); N17.9 Acute kidney failure, unspecified; B20 Human immunodeficiency virus [HIV] disease; N18.9 Chronic kidney disease, unspecified; E03.9 Hypothyroidism, unspecified; F19.11 Other psychoactive substance abuse, in remission
CPT/HCPCS: 36415; 74176; 76000; 76770; 80048; 80053; 80061; 80307; 81003; 82550; 82977; 83036; 83735; 83880; 84100; 84443; 84550; 85007; 85025; 86140; 86360; 87086; 87536; 94003; 94150; 96361; 96374; 96375; 96376; 99284; C9399; J2250; J2405; J3490

== ENCOUNTER 2019-08-15 18:45 | Emergency (ER) | payer MEDICAID ==
[~2019-08-15] VITALS: Ht 177.8 cm; Wt 90.7 kg
[~2019-08-15 18:45] MED LIST changes: +BUPROPION XL300 MG ORAL; +COLACE100 MG ORAL; +GABAPENTIN600 MG ORAL; +LISINOPRIL5 MG ORAL; +NORVASC5 MG ORAL; +QUETIAPINE FUMA25 MG ORAL; +TRIUMEQ 600-501 EACH PO; +WELLBUTRIN SR100 MG ORAL; +WELLBUTRIN XL150 MG ORAL; +ZOLOFT100 MG ORAL
[2019-08-15 19:03] VITALS: BP 149/93
--- NOTE | 2019-08-15 19:17 | Emergency Room Report ---
History of Present Illness General Chief Complaint: Gastrointestinal Bleed Source: Patient Present Illness HPI 54-year-old male with history of HIV presents to emergency room with 4 days of rectal bleeding. Patient reports with each bowel movement he has blood in the bowl as well as when he wipes. Patient had about 5 bowel movements today. He states they sometimes come out hard and other times are soft, or a mix. Patient has no known history of hemorrhoids. Of note patient states flu shot 2 weeks ago. He had some URI symptoms that lasted for 1 week duration after the shot. Also patient states he had a history of colitis in the past, he states it gets aggravated with spicy food which he ate last week. Patient has left lower abdominal pain associated with the diarrhea, which is nonradiating, dull in nature. He denies any urinary complaints. Patient is compliant with his HIV medications and has an undetectable viral load. Allergies: Coded Allergies: No Known Allergies (Unverified , 02/14/19) Nursing Documentation-[facility] Past Medical History: No History, Except For Hx Hypertension: Yes Hx Gastrointestinal Problems: Yes - Colitis, kidney stone Review of Systems Constitutional: Denies: chills, fever Respiratory: Denies: cough, shortness of breath Cardiovascular: Denies: chest pain, palpitations Gastrointestinal: Reports: abdominal pain, diarrhea, other - Gross rectal bleeding; Denies: vomiting, hematemesis Genitourinary: Denies: hematuria, pain Musculoskeletal: Denies: joint swelling Skin: Denies: rash, lesions Neurological: Denies: headache, dizziness Physical Exam Vital Signs Date Time Temp Pulse Resp B/P (MAP) Pulse Ox O2 Delivery O2 Flow Rate FiO2 08/15/19 18:51 99.0 82 18 149/93 (111) 94 Room Air Sp02 EP Interpretation: reviewed General Appearance: well appearing, no apparent distress, non-toxic Head: normocephalic, atraumatic Eyes: bilateral eye normal inspection, bilateral eye other - Normal conjunctive ENT: hearing grossly normal, EOM grossly intact, moist mucus membranes Neck: supple Respiratory: lungs clear, normal breath sounds, no respiratory distress, speaking full sentences Cardiovascular #1: regular rate, rhythm, normal capillary refill Cardiovascular #2: 2+ radial (R), 2+ radial (L) Gastrointestinal: soft, non-distended Rectal: normal rectal tone, heme positive stool, hemorrhoids, other - Guaiac mildly positive, no blood visualized on exam in rectal vault Genitourinary: normal inspection, no CVA tenderness Musculoskeletal: moves extm spontaneously, no lower extremity edema Neurologic: alert, grossly normal Psychiatric: mood/affect normal Skin: warm/dry, normal turgor Medical Decision Making ER Course 54-year-old HIV-positive male presenting with bright red rectal bleeding associated with diarrhea and left lower quadrant abdominal pain. Differential: GI bleed, hemorrhoids, gastroenteritis, infectious diarrhea, intra -abdominal infection, viral illness, diverticulosis, diverticulitis, sepsis Will perform lab testing, and reassess. EKG Diagnostic Results EKG Time: 19:17 EP Interpretation: Normal sinus rhythm rate of [address] changes consistent with ischemia CT/MRI/US Diagnostic Results CT/MRI/US Diagnostic Results : Imaging Test Ordered: CT abdomen pelvis Impression Preliminary Findings Only See Final Report For Complete Findings CT ABDOMEN & PELVIS Without Contrast: No free air, free fluid, or bowel obstruction. Normal appendix. Mild diffuse bladder wall thickening is nonspecific but can be seen in cystitis. Last Vital Signs Date Time Temp Pulse Resp B/P (MAP) Pulse Ox O2 Delivery O2 Flow Rate FiO2 08/15/19 19:03 99.0 82 18 149/93 94 Room Air Disposition: HOME, SELF-CARE Condition: Stable Referrals: JIA GUTIERREZ (PCP) Patient Instructions: Gastrointestinal Bleeding Additional Instructions: Please follow-up with your primary care doctor, Dr Beck, in 1 to 2 days, to obtain a referral to a lamp shade assembler for rectal bleeding as soon as possible. If you have any increased weakness, dizziness, heavy rectal bleeding , or any new symptoms please return to emergency room immediately for further evaluation.. Zack Mendes M.D. Aug 15, 2019 19:17
[2019-08-15 19:43] LABS: BASOPHILS % (AUTO) 0.7 % (0.0-2.0); EOSINOPHILS % (AUTO) 0.2 % (0.0-3.0); HEMATOCRIT 46.6 % (42.0-52.0); HEMOGLOBIN 15.4 G/DL (14.2-18.0); LYMPHOCYTES % (AUTO) 19.6 % (20.0-45.0); MEAN CORPUSCULAR VOLUME 85 FL (80-99); MONOCYTES % (AUTO) 7.3 % (1.0-10.0); NEUTROPHILS % (AUTO) 72.2 % (45.0-75.0); PLATELET COUNT 180 K/UL (150-450); RED BLOOD COUNT 5.49 M/UL (4.70-6.10); RED CELL DISTRIBUTION WIDTH 12.5 % (11.6-14.8); WHITE BLOOD COUNT 7.2 K/UL (4.8-10.8)
[2019-08-15 19:45] LABS: ANION GAP 7 mmol/L (5-15); BLOOD UREA NITROGEN 26 mg/dL (7-18); CALCIUM 9.1 MG/DL (8.5-10.1); CARBON DIOXIDE 27 MMOL/L (21-32); CHLORIDE 103 MMOL/L (98-107); CREATININE 1.6 MG/DL (0.55-1.30); POTASSIUM 3.9 MMOL/L (3.5-5.1); SODIUM 137 MMOL/L (136-145)
[2019-08-15 19:46] LABS: INR 0.9 (0.9-1.1)
[2019-08-15 19:58] LABS: ALANINE AMINOTRANSFERASE 36 U/L (12-78); ALBUMIN 3.9 G/DL (3.4-5.0); ALBUMIN/GLOBULIN RATIO 0.8 (1.0-2.7); ALKALINE PHOSPHATASE 71 U/L (46-116); ASPARTATE AMINO TRANSFERASE 20 U/L (15-37); BILIRUBIN,TOTAL 0.3 MG/DL (0.2-1.0); CKMB 0.9 NG/ML (0.0-3.6); CREATINE KINASE 43 U/L (26-308)
[2019-08-15 20:41] LABS: APPEARANCE,URINE CLEAR; BILIRUBIN, URINE NEGATIVE (NEGATIVE); COLOR,URINE PALE YELLOW; GLUCOSE, URINE (UA) NEGATIVE (NEGATIVE); KETONES,URINE NEGATIVE (NEGATIVE); LEUKOCYTE ESTERASE ,URINE NEGATIVE (NEGATIVE); NITRITE,URINE NEGATIVE (NEGATIVE); PH,URINE 5 (4.5-8.0); PROTEIN,URINE NEGATIVE (NEGATIVE); UROBILINOGEN,URINE NORMAL MG/DL (0.0-1.0)
--- NOTE | 2019-08-15 21:02 | Diagnostic Imaging Report ---
Indication: Left lower abdominal pain and rectal bleeding for 4 days Technique: Spiral acquisitions obtained through the abdomen and pelvis. No oral contrast utilized, per emergency room physician request No IV contrast utilized, per emergency room physician request. Multiplanar reconstructions were generated. Total dose length product 1253 mGycm. CTDIvol(s) 19 mGy. Dose reduction achieved using automated exposure control Comparison: 03/28/2019 Findings: The appendix is normal. There is no evidence of colonic diverticulosis or diverticulitis. No small bowel distention. No free or loculated intraperitoneal gas or fluid is evident. Distal esophagus, stomach, duodenum are unremarkable. Lack of IV contrast limits assessment of the solid organs. The liver is diffusely hypoattenuating, consistent with fatty change. No focal abnormality. Gallbladder, bile ducts are unremarkable. The pancreas is slightly fatty replaced. The spleen is enlarged, measuring 15.4 cm long axis dimension. The adrenals are unremarkable. The previously demonstrated distal left ureteral calculus is no longer evident. Previously demonstrated left hydronephrosis has resolved. There are 2 small sub-2 mm calculi in the lower pole of the left renal collecting system. No right renal or ureteral calculi, hydronephrosis, or hydroureter demonstrated. Previously demonstrated right upper pole intrarenal calculus is no longer visible. No focal renal parenchymal abnormality. The bladder is unremarkable. No retroperitoneal or mesenteric mass or adenopathy. No pelvic mass or adenopathy. The included lung bases demonstrate some posterior dependent atelectatic changes. The bones are unremarkable. Impression: No acute abnormality Interim resolution of previously demonstrated left distal ureteral calculus. There are nonobstructive left lower pole intrarenal calculi demonstrated. Splenomegaly Fatty liver This agrees with the preliminary interpretation provided overnight by [facility] teleradiology service, with some additional nonemergent findings. The CT scanner at [facility] is accredited by the [employer] and the scans are performed using protocols designed to limit radiation exposure to as low as reasonably achievable to attain images of sufficient resolution adequate for diagnostic evaluation.
[2019-08-15 21:40] VITALS: BP 128/68
--- NOTE | 2019-08-16 10:43 | Cardiology Report ---
APPROVED REPORT EKG Measurement Heart [id number] Normal sinus rhythm Normal ECG
== END 2019-08-15 21:40 | disposition home or self-care (01) ==
LOC: EMR 19:07
DX: K62.5 Hemorrhage of anus and rectum (principal); B20 Human immunodeficiency virus [HIV] disease; I10 Essential (primary) hypertension; Z87.442 Personal history of urinary calculi
CPT/HCPCS: 36415; 74176; 80053; 81003; 82550; 82553; 83605; 83690; 84484; 85025; 85610; 86850; 86900; 86901; 87040; 93005; 96360; Z7502; 99284

== ENCOUNTER 2020-02-03 07:18 | Emergency (ER) | payer MEDICAID ==
[~2020-02-03] VITALS: Ht 177.8 cm; Wt 104.3 kg
[~2020-02-03 07:18] MED LIST changes: +CEPHALEXIN500 M1 ORAL; +HYDROCODON-ACE1 EA15 ORAL
[2020-02-03 07:34] VITALS: BP 142/90
--- NOTE | 2020-02-03 07:42 | NUR ---
ED Nurse Note:pt. came with left eye lid discoloration, no discharge, visual disturbances, VSS, was examed by ER MD
[2020-02-03] MEDS ORDERED: ERYTHROMYCIN3.5 GM LEFT EYE (07:44)
[2020-02-03 07:50] VITALS: BP 142/90
--- NOTE | 2020-02-03 07:50 | NUR ---
ER DISCHARGE NOTE: Patient is cleared to be discharged per ERMD, pt is aox4, on room air, with stable vital signs. pt was given dc and prescription instructions, pt was able to verbalize understanding,pt is able to ambulate with steady gait. pt took all belongings.
--- NOTE | 2020-02-03 08:32 | Emergency Room Report ---
History of Present Illness General Chief Complaint: Eye Problems Source: Patient Present Illness HPI 54-year-old male presents for discoloration to the left eyelid. States he woke up this morning and noticed the discoloration. Denies any pain. Denies any change in vision. Denies any discharge. Denies any fall or injury. Denies taking blood thinners. No other aggravating relieving factors. Denies any other associated symptoms Allergies: Coded Allergies: No Known Allergies (Unverified , 02/14/19) COVID-19 Screening Contact w/high risk pt: No Recent Travel to affected area: No Experienced COVID-19 symptoms?: No Patient History Past Medical History: HTN Past Surgical History: none Pertinent Family History: none Social History: Denies: smoking, alcohol use, drug use Immunizations: UTD Reviewed Nursing Documentation: PMH: Agreed; PSxH: Agreed Nursing Documentation-PMH Past Medical History: No History, Except For Hx Hypertension: Yes Review of Systems All Other Systems: negative except mentioned in HPI Physical Exam Vital Signs Date Time Temp Pulse Resp B/P (MAP) Pulse Ox O2 Delivery O2 Flow Rate FiO2 02/03/20 07:25 98.2 80 18 142/90 (107) 96 Room Air Sp02 EP Interpretation: reviewed, normal General Appearance: no apparent distress, alert, GCS 15, non-toxic Head: normocephalic, atraumatic Eyes: left eye lid inflammation - ecchmoyses to L eyelid; bilateral eye normal inspection, bilateral eye PERRL, bilateral eye visual acuity ENT: hearing grossly normal, normal pharynx, no angioedema, normal voice Neck: full range of motion, supple/symm/no masses Respiratory: chest non-tender, lungs clear, normal breath sounds, speaking full sentences Cardiovascular #1: regular rate, rhythm, no edema Cardiovascular #2: 2+ carotid (R), 2+ carotid (L), 2+ radial (R), 2+ radial (L) , 2+ dorsalis pedis (R), 2+ dorsalis pedis (L) Gastrointestinal: normal bowel sounds, non tender, soft, non-distended, no guarding, no rebound Rectal: deferred Genitourinary: normal inspection, no CVA tenderness Musculoskeletal: back normal, normal range of motion, gait/station normal, non- tender Neurologic: alert, motor strength/tone normal, oriented x3, sensory intact, responsive, speech normal Psychiatric: judgement/insight normal, memory normal, mood/affect normal, no suicidal/homicidal ideation Reflexes: 3+ bicep (R), 3+ bicep (L), 3+ tricep (R), 3+ tricep (L), 3+ knee (R) , 3+ knee (L) Skin: no rash Lymphatic: no adenopathy Medical Decision Making Diagnostic Impression: Primary Impression: Eyelid abnormality ER Course Hospital Course 54 yo M presents to ED with discoloration to L eyelid. no pain Differential diagnoses include: conjunctivitis, traumatic iritis, foreign body, corneal abrasion Clinical course Patient placed on stretcher. After initial history, physical exam reveals male in no acute distress. There is some discoloration to the left medial eyelid. Appears ecchymotic. No induration or erythema. No ocular involvement. Visual acuity intact I discussed findings with patient. consideration for bruise vs infection. No change in visual acuity. Will discharge with erythromycin ointment. Recommend warm compresses. I will provide Ortho referral. Safe for discharge for close outpatient follow-up Diagnosis - eyelid abnormality Stable and discharged to home with prescription for erythromycin ointment. warm compresses. Followup with PMD/Optho. Return to ED if symptoms recur or worsen Last Vital Signs Date Time Temp Pulse Resp B/P (MAP) Pulse Ox O2 Delivery O2 Flow Rate FiO2 02/03/20 07:50 98.2 80 18 142/90 96 Room Air Status: improved Disposition: HOME, SELF-CARE Condition: Stable Scripts Erythromycin Base (ERYTHROMYCIN*) 3.5 Gm Oint...g. 1 APPLIC LEFT EYE QID, #3.5 GM 0 Refills Prov: Dyllan Chase MD 02/03/20 Referrals: Sajan Pacheco MD, Maziar M.D. MD NON PHYSICIAN (PCP) Patient Instructions: Blepharitis, [id number] Additional Instructions: apply ointment to eyelid. warm compresses to area. followup with opthalmology. Dyllan Chase MD February 03, 2020 08:32
== END 2020-02-03 08:00 | disposition home or self-care (01) ==
LOC: EMR 07:41
DX: H57.9 Unspecified disorder of eye and adnexa (principal); I10 Essential (primary) hypertension
CPT/HCPCS: 99282